=== PATIENT | female | born 1965 | race Caucasian/White ===

== ENCOUNTER 2017-03-06 05:18 | Inpatient (IN) | payer BC ==
[2017-02-04 10:41] VITALS: Ht 154.9 cm; Wt 99.0 kg
--- NOTE | 2017-02-04 11:17 | PAT Medication Instructions ---
Service Date Feb 04, 2017. Current Home Medication List Acetaminophen (Tylenol), 1-2 TAB PO Q8 PRN for Pain Meloxicam (Mobic), 15 MG PO QAM Medication Instructions For Your Scheduled Surgery - Check with surgeon for instructions: Meloxicam (Mobic), 15 MG PO QAM - Take the following medications the morning of surgery with a sip of water: Acetaminophen (Tylenol), 1-2 TAB PO Q8 PRN for Pain (okay to take up to 4 hours prior to surgery if needed) - Take the following medications as scheduled the night before surgery: Acetaminophen (Tylenol), 1-2 TAB PO Q8 PRN for Pain (if needed) If you have any questions please call us at [phone] or [phone] or [phone]
--- NOTE | 2017-02-04 11:59 | DIAGNOSTIC IMAGING REPORT ---
CHEST 2 VIEWS ROUTINE CLINICAL HISTORY: PAT preoperative evaluation COMPARISON STUDY: No previous studies for comparison. FINDINGS: The bones soft tissues and hemidiaphragms are normal. The cardiomediastinal silhouette is normal. The lungs are clear. The pulmonary vasculature is normal. IMPRESSION: Negative chest. The above report was generated using voice recognition software. It may contain grammatical, syntax or spelling errors. Electronically signed by: Meño Harris M.D. 02/04/2017 11:58 AM Dictated Date/Time: 02/04/2017 11:58 AM
[2017-02-04 12:10] LABS: BASO % 0.2 %; BASO ABS # 0.02 K/uL (0-0.2); COMPLETE YES; EOS % 1.5 %; HEMATOCRIT 43.4 % (37-47); IG% 0.2 %; LYMPH % 13.3 %; LYMPH ABS # 1.37 K/uL (1.2-3.4); MEAN CELL VOLUME 85.6 fL (80-100); MEAN CORPUSCULAR HGB CONC 33.9 g/dl (32-36); MEAN PLATELET VOLUME 9.9 fL (7.4-10.4); NEUT % 75.8 %; PLATELET COUNT 319 K/uL (130-400); RED BLOOD COUNT 5.07 M/uL (4.2-5.4); WHITE BLOOD COUNT 10.33 K/uL (4.8-10.8)
[2017-02-04 12:13] LABS: URINE APPEARANCE CLEAR (CLEAR); URINE BILIRUBIN NEG (NEG); URINE COLOR YELLOW; URINE NITRITE NEG (NEG); URINE SPECIFIC GRAVITY 1.016 (1.000-1.030); UROBILINOGEN NEG (NEG)
[2017-02-04 12:16] LABS: MANUAL MICROSCOPIC REQUIRED? NO; REVIEW REQ? NO
[2017-02-04 12:21] LABS: PARTIAL THROMBOPLASTIN RATIO 1.1; PROTHROMBIN TIME (PATIENT) 10.4 SECONDS (9.0-12.0)
[2017-02-04 12:38] LABS: ESTIMATED AVERAGE GLUCOSE 108 mg/dl; HA1C FLAG Normal (Normal)
[2017-02-04 13:06] LABS: BUN/CREATININE RATIO 18.2 (10-20); CALCIUM 9.5 mg/dl (8.5-10.1); CREATININE 0.76 mg/dl (0.60-1.20); POTASSIUM 4.3 mmol/L (3.5-5.1)
--- NOTE | 2017-03-02 18:55 | History and Physical ---
History & Physical Date Mar 02, 2017. Chief Complaint Right knee pain History of Present Illness The patient is a 51 year old female with complaints of right knee pain for several years. She has tried conservative therapy with no relief. She would like to proceed with a Right TKA Past Medical/Surgical History PMHx: One Kidney, osteoarthritis PSHx: wisdom teeth, tubal ligation Additional History Hepatic Disease: No Endocrine Disorder: No Kidney Disease: No Hypertension: No Heart Disease: No Bleeding Tendencies: No Infectious Diseases: No Allergies Coded Allergies: Sulfa Antibiotics (Verified Allergy, Unknown, LYMPH NODES HARDEN AND SWELL , 02/04/17) Home Medications Scheduled Meloxicam (Mobic), 15 MG PO QAM Scheduled PRN Acetaminophen (Tylenol), 1-2 TAB PO Q8 PRN for Pain Physical Examination Skin: warm/dry, no rash Eyes: normal inspection, EOMI ENT: normal ENT inspection Head: normocephalic, atraumatic Neck: supple, no adenopathy Respiratory/Chest: lungs clear, normal breath sounds Cardiovascular: regular rate, rhythm, no murmur Abdomen / GI: normal bowel sounds, non tender Extremities: normal inspection, + pertinent finding (decreased ROM and strength of the right knee. ligaments are intact. Medial joint line narrowing and pain. ) Neurologic/Psych: no motor/sensory deficits, alert, oriented x 3 Diagnosis Right knee osteoarthritis Plan of Treatment Patient is scheduled for a Right total knee arthroplasty. She has tried cortisone injection, PT, and NSAIDs with no relief and would like to proceed with a right total knee arthroplasty. Risks and benefits to surgery were discussed that included but no limited to increased pain, infection, DVT, need for revision surgeries, failure to relieve all symptoms, damage to blood vessels , damage to nerves, PE, and anesthesia risks were all discussed. The patient understands these risks and wishes to proceed. All questions were answered to their satisfaction. Aspirin 81mg BID will be use for DVT prophylaxis and she would like to go home with home health.
[~2017-03-06] VITALS: Ht 154.9 cm; Wt 99.0 kg
[2017-03-06] VITALS (11 sets, daily range): BP systolic 117–146; BP diastolic 50–84; PULSE 70–129; TEMP 36.4–36.9; O2SAT 94–99
[~2017-03-06 05:18] MED LIST: ACET-1256 PO; MELO7.5T5 PO
[2017-03-06] MEDS ORDERED: LACTATED RINGER'S 1000ML 500 ML IV ONE (06:00)
[2017-03-06] MEDS ORDERED: FAMOTIDINE 20 MG TAB PO SCH (06:00)
[2017-03-06] MEDS ORDERED: OXYCODONE HCL 10 MG TABCR (OXYCONTIN) PO SCH (06:00)
[2017-03-06] MEDS ORDERED: ROPIVACAINE 5MG/ML 30 ML 150 MG, BUPIVACAINE 0.5% MPF INJ 30 ML, EpINEphrine HCL INJ 0.... INFIL SCH ×8 (06:00)
[2017-03-06] MEDS ORDERED: GABAPENTIN 300 MG CAP PO SCH (06:00)
[2017-03-06] MEDS ORDERED: LACTATED RINGER'S 1000ML IV SCH (06:00)
[2017-03-06] MEDS ORDERED: DEXAMETHASONE 4 MG TAB PO SCH (06:00)
[2017-03-06] MEDS ORDERED: METOCLOPRAMIDE HCL 10 MG TAB PO SCH (06:00)
[2017-03-06] MEDS ORDERED: LACTATED RINGER'S 1000ML 1,000 ML IV SCH (06:00)
[2017-03-06] MEDS ORDERED: ACETAMINOPHEN 500 MG TAB PO SCH (06:00)
[2017-03-06] MEDS ORDERED: CEFAZOLIN 2000MG IV PUSH 10 ML IV SCH ×2 (06:00)
[2017-03-06] MEDS ORDERED: BUPIVACAINE 0.5 % 5 MG/1 ML PF 10ML VIAL ONE (06:24)
[2017-03-06] MEDS ORDERED: BACITRACIN 50000 UNIT VIAL ONE (06:27)
[2017-03-06] MEDS ORDERED: ORTHO JOINT ANESTHETIC ONE (06:27)
[2017-03-06] MEDS ORDERED: POVIDONE-IODINE OP SOLN 30 ML BTL ONE (06:27)
[2017-03-06] MEDS: TRANEXAMIC ACID INJ 1,000 MG in SYRINGE 0 ML IV SCH ×2 (06:30→06:46)
[2017-03-06] MEDS ORDERED: FENTANYL CITRATE INJ 50 MCG/1 ML 2 ML VIAL ONE (06:45)
[2017-03-06] MEDS ORDERED: MIDAZOLAM HCL 1 MG/ML 2ML VIAL ONE ×2 (06:46→07:08)
--- NOTE | 2017-03-06 06:47 | History & Physical Bridge Note ---
H&P Re-Evaluation Bridge Note: I have examined the patient, reviewed the History & Physical and in the interval since the performance of the History & Physical I have noted the following changes of clinical significance: No changes noted
[2017-03-06] MEDS ORDERED: ATROPINE SULFATE 0.1 MG/ML 5ML SYR IV PRN (07:30)
[2017-03-06] MEDS ORDERED: FENTANYL CITRATE INJ 50 MCG/1 ML 2 ML VIAL IV PRN (07:30)
[2017-03-06] MEDS ORDERED: ONDANSETRON INJ 2 MG/ML 2 ML VIAL IV PRN ×2 (07:30→09:15)
[2017-03-06] MEDS ORDERED: EpHEDrine SULFATE INJ 50 MG/ML AMP IV PRN (07:30)
[2017-03-06] MEDS ORDERED: LIDOCAINE HCL 2% 2 ML VIAL (20MG/ML) ONE (08:17)
[2017-03-06] MEDS ORDERED: PROPOFOL IV EMULSION 10 MG/ML 20 ML VIAL IV ONE (08:17)
--- NOTE | 2017-03-06 08:37 | [facility] Operative Report ---
Operative Report Operative Date Mar 06, 2017. Pre-Operative Diagnosis Right knee DEGENERATIVE JOINT DISEASE Post-Operative Diagnosis SAME PREOP Procedure(s) Performed RIGHT TOTAL KNEE ARTHROPLASTY Surgeon DR. GIRON Skilled Labor Surgeon(s) Huan AGUILAR PAC Estimated Blood Loss 20ml Findings As above plus significant synovitis Specimens RIGHT KNEE BONE AND TISSUE Drains 2 Hemovac Anesthesia spinal abductor canal block Complication(s) None Disposition Recovery Room / PACU Indications 51-year-old female long-standing degeneration the right knee. She's failed conservative measures including injection and rehabilitation. She is unable to take nonsteroidal anti-inflammatories secondary to only having 1 kidney. She wishes to proceed with right total knee arthroplasty. Description of Procedure Risks benefits and alternatives of surgery including but not limited to infection, DVT, pain, stiffness, need for surgery, damage to blood vessels, damage to nerves or risks of anesthesia were discussed with the patient and they wished to proceed. The patient was identified and the laterality was confirmed and marked. They received a preoperative antibiotic as well as a spinal anesthetic and an abductor canal block. A well-padded tourniquet was applied and then the limb was prepped and draped in standard manner with ChloraPrep. [The limb was exsanguinated and the tourniquet was inflated.] I made a standard anterior incision. I sharply incised the skin then utilized Bovie electrocautery as well as the aqua mantis to achieve hemostasis. I made a medial parapatellar arthrotomy and mobilized the patella laterally. I then excised the anterior horns of the medial and lateral meniscus as well as the infrapatellar fat pad. I elevated a portion of the MCL off of the tibia. I then pinned into place a patient-matched distal femoral cutting guide and made my distal femoral resection. I then pinned into place the 5 in 1 femoral cutting guide. I made my anterior, posterior and chamfer cuts. I then excised the cruciates and the remaining portions of the menisci. I then pinned into place a patient- matched tibial cutting guide and made my tibial resection. I then pinned into place the tibial plate a utilizing alignment swapnil to confirm rotation. I then cut for the post. Utilizing a lamina die casting machine maintainer and I then removed posterior osteophytes off the femur. I then placed a trial femur into position and cut for the trochlear component. I then sequentially trialed to size the polyethylene until there was good soft tissue balancing and range of motion. I then prepared the patella with a freehand cut utilizing sagittal saw. I sized and drilled for the patella. [There was good tracking to the patella no lateral release was needed.] All the trial components were removed. The deep tissues were anesthetized with an ortho mix solution. Then with Simplex HV with gentamicin cement, I cemented my definitive components. Definitive components, [facility]: Femur 3 Tibia 2 Poly 11 Patella 29 round A betadine soak was performed. [A deep drain was placed.] The arthrotomy was closed with interrupted #1 Vicryl suture subcutaneous tissue was closed with interrupted 2-0 Vicryl suture. The skin was closed with with [tyesha]. [A Prevena wound VAC was placed.] Sterile dressings were applied. All needle and sponge counts were correct at the end of the procedure patient was transferred to the PACU in stable condition without apparent complication. The PA-C was necessary for assistance with procedure for assistance in positioning, prepping, draping, retraction and closure. I attest to the content of the Intraoperative Record and any orders documented therein. Any exceptions are noted below.
[2017-03-06] MEDS ORDERED: ZOLPIDEM TARTRATE 5 MG TAB PO PRN (09:15)
[2017-03-06] MEDS ORDERED: BISACODYL 10 MG SUPP PR PRN (09:15)
[2017-03-06] MEDS ORDERED: SOD PHOSPHATE/SOD BIPHOSPHATE ENEMA 132 ML BTL PR PRN (09:15)
[2017-03-06] MEDS ORDERED: MAGNESIUM HYDROXIDE SUSP 30 ML UDC PO PRN (09:15)
[2017-03-06] MEDS ORDERED: NO NSAIDS PR SCH (09:15)
[2017-03-06] MEDS ORDERED: MoRPHine SULFATE 2 MG/ML CARP IV PRN (09:15)
[2017-03-06] MEDS ORDERED: ALUMINUM/MAGNESIUM/SIMETH (MAALOX MAX) 30 ML UDC PO PRN (09:15)
--- NOTE | 2017-03-06 09:54 | Anesthesiology Progress Note ---
Anesthesia Post Op Note Date & Time Mar 06, 2017 at 09:54 Vital Signs Pain Intensity: 0 Vital Signs Past 12 Hours Date Time Temp Pulse Resp B/P (MAP) Pulse Ox O2 Delivery O2 Flow Rate FiO2 03/06/17 09:50 79 16 122/79 98 Nasal Cannula 2 03/06/17 09:40 73 16 133/79 98 Nasal Cannula 2 03/06/17 09:30 72 16 121/77 95 Nasal Cannula 2 03/06/17 09:20 84 16 126/71 95 Nasal Cannula 2 03/06/17 09:12 36.5 96 16 125/78 95 Nasal Cannula 2 03/06/17 06:29 36.7 76 18 128/83 Room Air Notes Mental Status: alert / awake / arousable, participated in evaluation Pt Amnestic to Procedure: Yes Nausea / Vomiting: adequately controlled Pain: adequately controlled Airway Patency, RR, SpO2: stable & adequate BP & HR: stable & adequate Hydration State: stable & adequate Anesthetic Complications: no major complications apparent
--- NOTE | 2017-03-06 09:58 | DIAGNOSTIC IMAGING REPORT ---
R KNEE 1 OR 2 VIEWS ROUTINE HISTORY: 51 years-old Female AP/LATERAL IN PACU RIGHT KNEE status post right knee total joint arthroplasty. Right knee osteoarthritis COMPARISON: None available TECHNIQUE: 2 views of the right knee FINDINGS: Postoperative changes compatible with recent right knee total joint arthroplasty and patella resurfacing. Alignment is satisfactory. No periprosthetic fracture or retained foreign body identified. Anterior skin tyesha are noted along with a surgical drain. Expected postsurgical soft tissue swelling and deep tissue air. IMPRESSION: Status post right knee total joint arthroplasty and patellar resurfacing without complication identified. The above report was generated using voice recognition software. It may contain grammatical, syntax or spelling errors. Electronically signed by: Jamie Jesus M.D. 03/06/2017 9:57 AM Dictated Date/Time: 03/06/2017 9:56 AM
[2017-03-06] MEDS ORDERED: DiphenhydrAMINE HCL 50 MG/ML VIAL ONE ×3 (12:02→12:33)
[2017-03-06] MEDS ORDERED: NURSING VERBAL MED ORDER ONE ×5 (12:15→14:30)
[2017-03-06] MEDS ORDERED: LORAZEPAM INJ 0.5 MG in SYRINGE 0.75 ML IV SCH (12:15)
[2017-03-06] MEDS: FERROUS GLUCONATE 324 MG TAB PO SCH ×2 (12:20→16:25)
[2017-03-06 13:01] LABS: ALKALINE PHOSPHATASE 87 U/L (45-117); ALT/SGPT 24 U/L (12-78); AST/SGOT 13 U/L (15-37)
[2017-03-06] MEDS ORDERED: BENZTROPINE MESYLATE 1 MG/ML 2 ML AMP IV STA (13:03)
[2017-03-06] MEDS ORDERED: BENZTROPINE IV ONE (13:15)
--- NOTE | 2017-03-06 14:28 | Anesthesiology Progress Note ---
Anesthesia Progress Note Date of Service Mar 06, 2017. Progress Notes Pt is a 51F s/p R TKA performed under spinal anesthesia with R adductor canal block. I was called by nursing 2/2 pt having "tremors." I personally went to evaluate the pt. The pt was noted to have uncontrolled lower extremity and truncal movement. The pt was cognitively intact but was unable to control her movements. The pt's vital signs were stable. The pt's LE strength was 4/5 likely 2/2 resolving spinal anesthesia and her UE strength was 5/5. Sensation was intact in the upper and lower extremities. The pt was given 25mg of benadryl p.o.,100mg of benadryl IV, and 0.5mg of ativan IV. There was no improvement in the symptoms. I spoke with Dr. Hernandez and Dr. Lock of neurology. Their impression was the pt was showing side effects of the oral reglan the pt received pre-operatively. They recommended that the pt receive 1mg cogentin IV. I had the pt transferred to telemetry for closer observation. Upon re-evaluation , the pt continued to have uncontrolled movements but it was much improved. The pt remained cognitively intact, and her vital signs were stable. I spoke with Dr. Whiteside about the pt's status, and I consulted him for further care. I updated Dr. Da Silva on the pt's status.
[2017-03-06] MEDS: CLINDAMYCIN IV 600 MG in DEXTROSE 5% 50ML 50 ML IV SCH ×2 (14:33→23:15)
[2017-03-06] MEDS: SODIUM CHLORIDE 0.9% 1000ML 1,000 ML IV SCH ×2 (15:09→22:47)
[2017-03-06] MEDS ORDERED: LORAZEPAM 2 MG/ML 1 ML VIAL IV PRN (19:00)
--- NOTE | 2017-03-06 19:02 | Medical Consult ---
Consultation Date of Consultation: Mar 06, 2017. Attending Physician: Michael Da Silva M.D. Reason for Consultation: Akathisia / involuntary movement History of Present Illness 51 years old female with no significant past medical history presented to the hospital for elective right total knee arthroplasty. Patient has chronic arthritis and failed outpatient conservative management. Prior to the procedure patient received oral Reglan as a standard procedure to prevent aspiration. Procedure was done under spinal anesthesia and minor sedation with propofol and fentanyl and Versed procedure went uneventful but as soon as the patient woke up she started having significant involuntary movement in both upper and lower extremities and in her waist. She did not have any shortness of breath or difficulty swallowing or any abnormal movement in her tongue and palate. No hoarseness of voice or wheezing. We were consulted to co manage her symptoms Social History Smoking Status: Never Smoker Allergies Coded Allergies: Sulfa Antibiotics (Verified Allergy, Unknown, LYMPH NODES HARDEN AND SWELL , 03/06/17) Current Inpatient Medications Current Inpatient Medications Medications (Trade) Dose Ordered Sig/Vane Route Start Time Stop Time Status Last Admin Dose Admin Clindamycin Phosphate 600 mg/ Dextrose 54 ml @ 100 mls/hr Q8H IV 03/06/17 15:00 03/06/17 23:33 03/06/17 14:33 100 MLS/HR Miscellaneous Medication (No Nsaids) 1 ea UD DC 03/06/17 09:15 04/05/17 09:14 Oxycodone HCl (Roxicodone Immediate Rel Tab) 1 TABLET FOR PAIN RATING... Q4H PRN PO 03/06/17 09:15 03/20/17 09:14 Morphine Sulfate (MoRPHine SULFATE INJ) 2 mg Q2H PRN IV 03/06/17 09:15 03/20/17 09:14 Magnesium Hydroxide (Milk Of Magnesia Susp) 30 ml Q6H PRN PO 03/06/17 09:15 04/05/17 09:14 Bisacodyl (Dulcolax Supp) 10 mg DAILY PRN DC 03/06/17 09:15 04/05/17 09:14 Sodium Biphosphate/ Sodium Phosphate (Fleet Enema) 132 ml DAILY PRN DC 03/06/17 09:15 04/05/17 09:14 Senna (Senokot Tab) 17.2 mg HS PO 03/06/17 21:00 04/05/17 20:59 Docusate Sodium (coLACE CAP) 100 mg BID PO 03/06/17 21:00 04/05/17 20:59 Diphenhydramine HCl (Benadryl Cap) 25 mg Q8H PRN PO 03/06/17 09:15 04/05/17 09:14 03/06/17 11:08 25 MG Al Hydrox/Mg Hydrox/Simethicone (Maalox Max Susp) 15 ml Q4H PRN PO 03/06/17 09:15 04/05/17 09:14 Zolpidem Tartrate (Ambien Tab) 5 mg HSZ PRN PO 03/06/17 09:15 04/05/17 09:14 Multivitamins (Multivitamin Tab) 1 tab QAM PO 03/07/17 09:00 04/06/17 08:59 Ondansetron HCl (Zofran Inj) 4 mg Q6H PRN IV 03/06/17 09:15 04/05/17 09:14 Ferrous Gluconate (Ferrous Gluconate Tab) 324 mg TIDM PO 03/06/17 12:00 04/05/17 11:59 03/06/17 16:25 324 MG Rivaroxaban (Xarelto Tab) 10 mg DAILY PO 03/07/17 09:00 04/06/17 08:59 Sodium Chloride 1,000 ml @ 125 mls/hr Q8H IV 03/06/17 14:45 04/05/17 14:44 03/06/17 15:09 125 MLS/HR Review of Systems Constitutional: No fever, No chills, No sweats, No weight loss, No weakness, No fatigue, No problem reported Eyes: No worsening of vision, No eye pain, No redness, No discharge, No diplopia, No problem reported ENT: No hearing loss, No unusual epistaxis, No nasal symptoms, No sore throat, No tinnitus, No dental problems, No trouble swallowing, No problem reported Respiratory: No cough, No sputum, No wheezing, No shortness of breath, No dyspnea on exertion, No dyspnea at rest, No hemoptysis, No problem reported Cardiovascular: No chest pain, No orthopnea, No PND, No edema, No claudication , No palpitations, No problem reported Abdomen: No pain, No nausea, No vomiting, No diarrhea, No constipation, No GI bleeding, No problem reported Musculoskeletal: No joint pain, No muscle pain, No swelling, No calf pain, No problem reported Genitourinary - Female: No dysuria, No urinary frequency, No urinary urgency, No urinary incontinence, No urinary retention, No hematuria, No dysmenorrhea, No menorrhagia, No metrorrhagia, No rash, No vaginal bleeding, No vaginal discharge, No vaginal itching, No vulvodynia, No , No problem reported Neurologic: + problem reported (as mentioned in history of present illness), No memory loss, No paralysis, No weakness, No numbness/tingling, No vertigo, No balance problems Psychiatric: No depression symptoms, No anhedonism, No anxiety, No insomnia, No substance abuse, No problem reported Endocrine: No fatigue, No excessive thirst, No excessive urination, No problem reported Hematologic / Lymphatic: No abnormal bleeding/bruising, No clotting problems, No swollen lymph nodes, No night sweats, No problem reported Integumentary: No rash, No itch, No new/changing skin lesions, No color change , No bleeding, No problem reported Physical Exam Date Time Temp Pulse Resp B/P (MAP) Pulse Ox O2 Delivery O2 Flow Rate FiO2 03/06/17 16:19 36.9 94 18 118/84 (95) 97 03/06/17 16:00 Room Air 03/06/17 14:00 36.5 111 19 146/51 (82) 94 Nasal Cannula 2.0 03/06/17 13:32 36.4 129 21 99 2.0 03/06/17 13:04 129 21 134/50 (78) 99 Nasal Cannula 2.0 03/06/17 12:12 36.4 98 19 145/78 (100) 98 Nasal Cannula 2.0 03/06/17 11:21 90 18 144/79 (100) 98 2.0 03/06/17 10:48 73 18 130/81 (97) 96 Nasal Cannula 2.0 03/06/17 10:34 98 Nasal Cannula 2.0 03/06/17 10:15 98 Room Air 2.0 03/06/17 10:15 36.6 71 18 122/61 (81) 98 Room Air 2.0 03/06/17 10:00 36.9 74 16 124/68 98 Nasal Cannula 2 03/06/17 09:50 79 16 122/79 98 Nasal Cannula 2 03/06/17 09:40 73 16 133/79 98 Nasal Cannula 2 03/06/17 09:30 72 16 121/77 95 Nasal Cannula 2 03/06/17 09:20 84 16 126/71 95 Nasal Cannula 2 03/06/17 09:12 36.5 96 16 125/78 95 Nasal Cannula 2 03/06/17 06:29 36.7 76 18 128/83 Room Air General Appearance: WD/WN, no apparent distress Head: normocephalic, atraumatic Eyes: normal inspection, EOMI ENT: normal ENT inspection, hearing grossly normal, TMs normal Neck: supple, no adenopathy, thyroid normal Respiratory/Chest: chest non-tender, lungs clear, normal breath sounds, no respiratory distress, no accessory muscle use Cardiovascular: regular rate, rhythm, no edema, no gallop, no JVD, no murmur, normal peripheral pulses Abdomen/GI: non tender, soft, no organomegaly, no pulsatile mass, normal rectal exam, occult blood negative Back: normal inspection Extremities/Musculoskelatal: normal inspection, no calf tenderness, normal capillary refill Neurologic/Psych: patent litigation associate II-XII nml as tested, alert, normal mood/affect, oriented x 3, + pertinent finding (patient has involuntarily jerking movement in all of her extremity and waist) Skin: normal color, warm/dry, no rash Laboratory Results Last 24 Hours Test 03/06/17 12:27 Total Bilirubin 0.3 mg/dl Direct Bilirubin < 0.1 mg/dl Aspartate Amino Transf (AST/SGOT) 13 U/L Alanine Aminotransferase (ALT/SGPT) 24 U/L Alkaline Phosphatase 87 U/L Total Protein 6.8 gm/dl Albumin 3.0 gm/dl Assessment & Plan 51 years old female with no significant past medical history, status post right total knee arthroplasty, developed acute involuntarily movement Assessment Involuntary extrapyramidal tract movement/akathisia/dystonia likely reaction to Reglan Arthritis status post successful right total knee replacement Plan Patient received Benadryl IV/Ativan IV/1 mg of Cogentin IV Case was discussed between anesthesiologist and neurologist 20 minutes after I did my initial exam to the patient, all her symptoms resolved , she does not have any more involuntary movement. Rule out rhabdomyolysis secondary to the vigorous muscle shaking, will order CPK now and in a.m. Also ordered renal function and liver function a.m. Keep her on IV fluids DVT prophylaxis as per primary orthopedic team
[2017-03-06] MEDS ORDERED: LORAZEPAM INJ 1 MG in SYRINGE 0.5 ML IV PRN (19:15)
[2017-03-06] MEDS: SENNA 8.6 MG TAB PO SCH (21:00)
[2017-03-06] MEDS: DOCUSATE SODIUM 100 MG CAP PO SCH (21:00)
[2017-03-07 03:50] VITALS: BP 117/71; PULSE 72; TEMP 36.7; O2SAT 96
[2017-03-07] MEDS: OXYCODONE HCL IR 5 MG TAB (IMMEDIATE RELEASE) PO PRN ×4 (04:03→23:16)
[2017-03-07] MEDS: SODIUM CHLORIDE 0.9% 1000ML 1,000 ML IV SCH ×3 (06:45→19:40)
[2017-03-07 07:37] LABS: BASO % 0.1 %; BASO ABS # 0.01 K/uL (0-0.2); COMPLETE YES; HEMATOCRIT 33.7 % (37-47); IG% 0.3 %; LYMPH % 7.9 %; LYMPH ABS # 1.25 K/uL (1.2-3.4); MEAN CELL VOLUME 85.3 fL (80-100); MEAN CORPUSCULAR HEMOGLOBIN 28.4 pg (25-34); MEAN CORPUSCULAR HGB CONC 33.2 g/dl (32-36); MEAN PLATELET VOLUME 10.2 fL (7.4-10.4); MONO % 6.6 %; NEUT % 85.1 %; PLATELET COUNT 291 K/uL (130-400); RED BLOOD COUNT 3.95 M/uL (4.2-5.4); WHITE BLOOD COUNT 15.81 K/uL (4.8-10.8)
[2017-03-07 07:45] LABS: PROTHROMBIN TIME (PATIENT) 10.6 SECONDS (9.0-12.0)
[2017-03-07] MEDS: FERROUS GLUCONATE 324 MG TAB PO SCH ×3 (07:47→16:21)
[2017-03-07] MEDS: RIVAROXABAN 10 MG TAB PO SCH (07:47)
[2017-03-07] MEDS: MULTIVITAMIN TAB PO SCH (07:47)
[2017-03-07] MEDS: DOCUSATE SODIUM 100 MG CAP PO SCH ×2 (07:48→19:38)
[2017-03-07 07:58] VITALS: BP 123/82; PULSE 73; TEMP 36.8; O2SAT 96
[2017-03-07 08:22] LABS: BUN/CREATININE RATIO 21.8 (10-20); CALCIUM 8.3 mg/dl (8.5-10.1); CREATININE 0.7 mg/dl (0.60-1.20); POTASSIUM 3.8 mmol/L (3.5-5.1)
[2017-03-07 08:25] LABS: ALB/GLOB RATIO 0.8 (0.9-2)
--- NOTE | 2017-03-07 08:43 | Orthopedic Progress Note ---
Orthopedic Progress Note Date of Service Mar 07, 2017. Subjective Post OP Day: 1 Reports: feeling well, pain controlled w PO medications, Denies: complaints, chest pain, SOB, nausea / vomiting, light headedness, calf pain Additional Notes: Patient seen at bedside, comfortable, no acute issues overnight. Pain well controlled. Objective NAD, AOX3 RLE NVSI +EHL/FHL/TA/GS SILT grossly, CR< 2 seconds, compartments soft NT, dressing cdi, drain in place Date Time Temp Pulse Resp B/P (MAP) Pulse Ox O2 Delivery O2 Flow Rate FiO2 03/07/17 07:58 36.8 73 20 123/82 (96) 96 Room Air 03/07/17 04:00 Room Air 03/07/17 03:50 36.7 72 18 117/71 (86) 96 Room Air 03/07/17 00:00 Room Air 03/06/17 23:45 36.6 70 18 117/74 (88) 94 Room Air 03/06/17 20:00 Room Air 03/06/17 19:11 36.5 86 20 124/69 (87) 95 03/06/17 16:19 36.9 94 18 118/84 (95) 97 03/06/17 16:00 Room Air 03/06/17 14:00 36.5 111 19 146/51 (82) 94 Nasal Cannula 2.0 03/06/17 13:32 36.4 129 21 99 2.0 03/06/17 13:04 129 21 134/50 (78) 99 Nasal Cannula 2.0 03/06/17 12:12 36.4 98 19 145/78 (100) 98 Nasal Cannula 2.0 03/06/17 11:21 90 18 144/79 (100) 98 2.0 03/06/17 10:48 73 18 130/81 (97) 96 Nasal Cannula 2.0 03/06/17 10:34 98 Nasal Cannula 2.0 03/06/17 10:15 98 Room Air 2.0 03/06/17 10:15 36.6 71 18 122/61 (81) 98 Room Air 2.0 03/06/17 10:00 36.9 74 16 124/68 98 Nasal Cannula 2 03/06/17 09:50 79 16 122/79 98 Nasal Cannula 2 03/06/17 09:40 73 16 133/79 98 Nasal Cannula 2 03/06/17 09:30 72 16 121/77 95 Nasal Cannula 2 03/06/17 09:20 84 16 126/71 95 Nasal Cannula 2 03/06/17 09:12 36.5 96 16 125/78 95 Nasal Cannula 2 Laboratory Results 24 Hours: Test 03/07/17 07:02 White Blood Count 15.81 K/uL Red Blood Count 3.95 M/uL Hemoglobin 11.2 g/dL Hematocrit 33.7 % Mean Corpuscular Volume 85.3 fL Mean Corpuscular Hemoglobin 28.4 pg Mean Corpuscular Hemoglobin Concent 33.2 g/dl Platelet Count 291 K/uL Mean Platelet Volume 10.2 fL Neutrophils (%) (Auto) 85.1 % Lymphocytes (%) (Auto) 7.9 % Monocytes (%) (Auto) 6.6 % Eosinophils (%) (Auto) 0.0 % Basophils (%) (Auto) 0.1 % Neutrophils # (Auto) 13.46 K/uL Lymphocytes # (Auto) 1.25 K/uL Monocytes # (Auto) 1.04 K/uL Eosinophils # (Auto) 0.00 K/uL Basophils # (Auto) 0.01 K/uL Prothromb Time International Ratio 1.0 Prothrombin Time 10.6 SECONDS Assessment & Plan Assessment: POD#1 s/p R TKA Plan: -Clinda x 24hr -Xarelto for DVT ppx -AM labs -WBAT RLE -PT/OT -DC Drain today -Maintain Prevena incision vac -DC planing -poss DC home today vs tomorrow if medically cleared
--- NOTE | 2017-03-07 09:17 | Hospitalist Progress Note ---
Hospitalist Progress Note Date of Service Mar 07, 2017. (Margaret BarbozaBrenna, SHAQ) I personally interviewed and examined the patient. I agree with history of present illness and physical exam mentioned above, I also performed my own history taking and examination. Past medical history and review of system has been obtained by myself I reviewed all pertinent labs and studies Reviewed current medications I discussed and formulated of the assessment and plan mentioned above. Please refer to the Summary mentioned below. Agree With Mrs. Barboza plan General Appearance: not in acute distress Eyes: normal Sclerae, extraocular muscle intact ENT: hearing grossly normal Neck: supple Respiratory/Chest: normal air entry especially bilateral ,no respiratory distress, no accessory muscle use Cardiovascular: regular rate, rhythm, no murmur Abdomen: non tender, soft, no masses Extremities: no edema Neurologic/Psychiatric: Awake alert oriented times place and person moves all extremities sensation intact cranial nerves II-12 appear to be intact Skin: normal color, warm/dry, no rash 51 years old female with no significant past medical history, status post right total knee arthroplasty, developed acute involuntarily movement. currently resolved Assessment Involuntary extrapyramidal tract movement/akathisia/dystonia likely reaction to Reglan Arthritis status post successful right total knee replacement Plan Patient yesterday received Benadryl IV/Ativan IV/1 mg of Cogentin IV Currently all extrapyramidal movement resolved Patient medically stable and cleared for discharge CPK within normal limits/ white blood cell count likely reactive DVT prophylaxis as per primary orthopedic team From our aspect there is no contraindication to discharge patient home. Please call us if you have any questions Evens Whitseide MD, [facility] hospitalist group (Evens Sims MD) Subjective Pt evaluation today including: conversation w/ patient, physical exam, chart review, lab review, review of studies Pain: Mild R knee pain PO Intake: Good Voiding: no voiding problems The patient was seen and examined this morning. Pt reports doing ok. She was seen working with PT and seemed to do well. Still having some paresthesias in her right foot, but feels this is due a cramping sensation she feels in the right thigh. She reports not remembering ~3 hour period yesterday when she was having the issue with shaking, but has not experienced anything like this since that time. No soreness or muscle cramping otherwise. Pt denies any other acute complaints. Pt tolerated breakfast without difficulty and had a BM this morning. Social Hx: Pt reports having an gordy family, but considers herself a "fence jumper" since she transitioned to Pashto. 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 Since then trailed PT/OT, got a hot tub for relief, and also did corticosteroid injections. Pt notes she butchered the cow that kicked her. ROS: 6 point ROS reviewed and otherwise negative. (Margaret Barboza, SHAQ) I did not see this patient at any point in hospitalization. Dr. Whiteside saw the patient in conjunction with EARLE Barboza and cosigned as above. I was listed as the cosigner and am signing this note in order to complete it in the EMR only. (Sania Baez MD) Objective Vital Signs Date Time Temp Pulse Resp B/P (MAP) Pulse Ox O2 Delivery O2 Flow Rate FiO2 03/07/17 07:58 36.8 73 20 123/82 (96) 96 Room Air 03/07/17 04:00 Room Air 03/07/17 03:50 36.7 72 18 117/71 (86) 96 Room Air 03/07/17 00:00 Room Air 03/06/17 23:45 36.6 70 18 117/74 (88) 94 Room Air 03/06/17 20:00 Room Air 03/06/17 19:11 36.5 86 20 124/69 (87) 95 03/06/17 16:19 36.9 94 18 118/84 (95) 97 03/06/17 16:00 Room Air 03/06/17 14:00 36.5 111 19 146/51 (82) 94 Nasal Cannula 2.0 03/06/17 13:32 36.4 129 21 99 2.0 03/06/17 13:04 129 21 134/50 (78) 99 Nasal Cannula 2.0 03/06/17 12:12 36.4 98 19 145/78 (100) 98 Nasal Cannula 2.0 03/06/17 11:21 90 18 144/79 (100) 98 2.0 03/06/17 10:48 73 18 130/81 (97) 96 Nasal Cannula 2.0 03/06/17 10:34 98 Nasal Cannula 2.0 03/06/17 10:15 98 Room Air 2.0 03/06/17 10:15 36.6 71 18 122/61 (81) 98 Room Air 2.0 03/06/17 10:00 36.9 74 16 124/68 98 Nasal Cannula 2 03/06/17 09:50 79 16 122/79 98 Nasal Cannula 2 03/06/17 09:40 73 16 133/79 98 Nasal Cannula 2 03/06/17 09:30 72 16 121/77 95 Nasal Cannula 2 03/06/17 09:20 84 16 126/71 95 Nasal Cannula 2 (Margaret Barboza PA-C) Physical Exam General Appearance: WD/WN, no apparent distress, + obese Eyes: PERRL, EOMI ENT: hearing grossly normal, pharynx normal Neck: supple, no JVD Respiratory/Chest: lungs clear, no respiratory distress, no accessory muscle use Cardiovascular: regular rate, rhythm, no murmur Abdomen: normal bowel sounds, non tender, soft Extremities: non-tender, no pedal edema, no calf tenderness, + pertinent finding (R leg wrapped in TIMBO, hemovac drain in placed, + numbness and tingling into the distal foot, good active ROM with PT) Neurologic/Psychiatric: alert, normal mood/affect, oriented x 3 Skin: normal color, warm/dry (Margaret Barboza PA-C) Laboratory Results Last 24 Hours Test 03/06/17 12:27 03/06/17 19:50 03/07/17 07:02 Total Bilirubin 0.3 mg/dl 0.3 mg/dl Direct Bilirubin < 0.1 mg/dl Aspartate Amino Transf (AST/SGOT) 13 U/L 10 U/L Alanine Aminotransferase (ALT/SGPT) 24 U/L 18 U/L Alkaline Phosphatase 87 U/L 70 U/L Total Protein 6.8 gm/dl 6.2 gm/dl Albumin 3.0 gm/dl 2.8 gm/dl Total Creatine Kinase 114 U/L 79 U/L White Blood Count 15.81 K/uL Red Blood Count 3.95 M/uL Hemoglobin 11.2 g/dL Hematocrit 33.7 % Mean Corpuscular Volume 85.3 fL Mean Corpuscular Hemoglobin 28.4 pg Mean Corpuscular Hemoglobin Concent 33.2 g/dl Platelet Count 291 K/uL Mean Platelet Volume 10.2 fL Neutrophils (%) (Auto) 85.1 % Lymphocytes (%) (Auto) 7.9 % Monocytes (%) (Auto) 6.6 % Eosinophils (%) (Auto) 0.0 % Basophils (%) (Auto) 0.1 % Neutrophils # (Auto) 13.46 K/uL Lymphocytes # (Auto) 1.25 K/uL Monocytes # (Auto) 1.04 K/uL Eosinophils # (Auto) 0.00 K/uL Basophils # (Auto) 0.01 K/uL RDW Standard Deviation 44.9 fL RDW Coefficient of Variation 14.3 % Immature Granulocyte % (Auto) 0.3 % Immature Granulocyte # (Auto) 0.05 K/uL Prothrombin Time 10.6 SECONDS Prothromb Time International Ratio 1.0 Sodium Level 141 mmol/L Potassium Level 3.8 mmol/L Chloride Level 110 mmol/L Carbon Dioxide Level 24 mmol/L Anion Gap 6.0 mmol/L Blood Urea Nitrogen 15 mg/dl Creatinine 0.70 mg/dl Est Creatinine Clear Calc Drug Dose 94.6 ml/min Estimated GFR () 115.5 Estimated GFR (Non- 99.6 BUN/Creatinine Ratio 21.8 Random Glucose 126 mg/dl Calcium Level 8.3 mg/dl Globulin 3.4 gm/dl Albumin/Globulin Ratio 0.8 (Margaret Barboza, PA-C) Assessment and Plan 51 years old female with no significant past medical history, status post right total knee arthroplasty, developed acute involuntarily movement Assessment Involuntary extrapyramidal tract movement/akathisia/dystonia likely reaction to Reglan - Resolved likely with combination of benadryl IV/ativan IV/ 1 mg Cogentin IV - CPK checked and is 79 - no rhabdo - Cr is baseline = 0.70 with adequate Cr. clearance - D/c fluids if tolerating PO intake Arthritis status post successful right total knee replacement - pain management, bowel regimen and DVT ppx per primary team - hemovac drain in place - PT/OT on board CODE status: FULL Disposition: From home, likely discharge within 24 hours per primary team Thank you for involving us in the care of Ms. Martinez, at this time medicine will sign off. (Margaret Barboza, SHAQ)
[2017-03-07] MEDS ORDERED: RXC5 PO (10:22)
[2017-03-07] MEDS ORDERED: ACET-1256 PO (10:22)
[2017-03-07] MEDS ORDERED: XRL10 PO (10:22)
--- NOTE | 2017-03-07 10:31 | Discharge Instructions ---
Discharge Instructions Date of Service Mar 07, 2017. Admission Reason for Admission: Right Knee Osteoarthritis Discharge Discharge Diagnosis / Problem: Right Knee Djd Discharge Goals Goal(s): Decrease discomfort, Improve function, Increase independence Activity Recommendations Activity Limitations: per Instructions/Follow-up section Weightbearing Status: Right weightbearing (as tolerated) . Instructions / Follow-Up Instructions / Follow-Up ACTIVITY RECOMMENDATIONS: SELF CARE INSTRUCTIONS AFTER TOTAL KNEE REPLACEMENT A. You may need to continue a physical therapy program after discharge from the hospital. There are several options available to you. Your doctor will assist you in selecting the best one for you. 1. An out-patient facility 2 to 3 times a week for therapy or home therapy. 2. Continue working on all exercises taught to you in the hospital. Your goals should be to increase bending of your knee to 90 degrees and beyond and to fully straighten your knee. B. You may progress at your own pace from walking with a walker or crutches to a cane; then to no assistive devices. C. Make walking a part of your daily routine. Be up as much as comfortable with rest periods throughout the day. Rest with leg elevation is very important. Use the ice wrap frequently for the first 3-4 weeks. D. There are no restrictions on activities. You may ride in a car, shop, participate in customer support assistant and all social activities. E. Wear the long elastic stockings (ROCKY hose) 20 hours a day for 2 weeks after surgery. They can be removed several times a day for laundering and for a bath. F. You may shower, no tub baths until cleared by your doctor. SPECIAL CARE INSTRUCTIONS: VERY IMPORTANT TO READ AND REVIEW A. There are a few signs you need to watch for after you are home. Call [facility] if you notice any of the followin. Increased severe knee pain. Some pain is expected especially when you exercise. 2. Increased swelling in your leg or knee; pain or swelling of the calf muscle in either lower leg. 3. Any fluid drainage from the incision. 4. Shortness of breath or chest pain. B. Please call [facility] at if you have any concerns or questions about your operation or recovery. The doctor or his nurse will return your call promptly. C. You must take antibiotics before dental work, bladder, bowel or other surgery. Your doctor will provide you with a permanent care to carry describing this precaution. IMPORTANT: * REMEMBER TO TAKE XARELTO 10MG ONCE DAILY FOR 4 WEEKS UNLESS OTHERWISE DIRECTED. THIS IS YOUR BLOOD THINNER. * CALL IF INCREASED PAIN, REDNESS, DRAINAGE OR FEVER GREATER THAT 101. * WEAR ROCKY HOSE 20 HOURS PER DAY FOR 2 WEEKS. * Prevena- This is a large suction dressing covering your incision. This will help pull any excess drainage from the wound and allow your incision to heal properly. You may shower with this if you can keep the unit outside of the shower. If any bleeding or leakage is noted please call your doctor's office. This will remain on your incision for 7 days and then should be removed. This can be done yourself or by the home nursing staff if applicable. The entire unit is disposable once removed. Once removed, keep incision clean and dry. If redness or drainage is noted, please call your surgeon. . FOLLOW UP VISIT: If appointment is not already scheduled: Please call [facility] to make a follow-up appointment for 2 weeks after your surgery at . Current Hospital Diet Patient's current hospital diet: Regular Diet Discharge Diet Recommended Diet: Regular Diet Procedures Procedures Performed: RIGHT TOTAL KNEE ARTHROPLASTY Pending Studies Studies pending at discharge: no Laboratory Results Hemoglobin A1c Test 02/04/17 11:25 Range/Units Estimated Average Glucose 108 mg/dl Hemoglobin A1c 5.4 4.5-5.6 % Medical Emergencies . Who to Call and When: Medical Emergencies: If at any time you feel your situation is an emergency, please call 911 immediately. . Non-Emergent Contact Non-Emergency issues call your: Surgeon Call Non-Emergent contact if: temperature is above 101.5, your pain is not controlled, your pain is worsening, wound has increased drainage, wound has increased redness . "Provider Documentation" section prepared by Keny John. . VTE Core Measure Inpt VTE Proph given/why not?: Other Anticoagulation, T.E.D. Stockings, SCD's [place] Drug Monitoring Program Search Results: patient reviewed within database, no issues identified
--- NOTE | 2017-03-07 11:14 | Neurology Consultation ---
Neurology Consultation Date of Consultation: Mar 07, 2017. Attending Physician: Michael Da Silva M.D. Primary Care Physician: Derian Blackburn MD Reason for Consultation: Abnormal movements History of Present Illness Source: patient, hospital records The patient is a 51-year-old female who experienced an episode of uncontrollable , involuntary, movements of the limbs and musculature of the torso that were noted after recovery from anesthesia which was administered for a right total knee arthroplasty. The patient was given Reglan as well as light sedation with propofol, fentanyl, and Versed. A spinal block was utilized. There was no associated loss of consciousness or awareness during the episode. Nursing notes indicate that the patient was exhibiting uncontrollable shaking of her entire body. Yet, when asked to follow commands, the shaking would stop. The patient had complained that the SCDs were triggering the movements. These abnormal movements were potentially felt to be related to the use of Reglan, prior to anesthesia. She was treated with IV Benadryl without much improvement, however. She was also treated with IV lorazepam. The movements eventually resolved after administration of Cogentin. Upon further questioning, the patient indicates that she has had similar reactions to anesthesia in the past but does not really recall if she was given Reglan or not with these prior episodes. Otherwise, the patient does not have a known history of movement disorder. Currently, the patient feels fine. She does not have any significant complaints. She has not expressed a recurrence of these abnormal movements. She denies muscle pain, weakness, or sensory loss. Allergies Coded Allergies: Metoclopramide (Verified Allergy, Severe, Involuntary movement, limb shaking/jerking, 03/07/17) Sulfa Antibiotics (Verified Allergy, Unknown, LYMPH NODES HARDEN AND SWELL , 03/06/17) Current Inpatient Medications Current Inpatient Medications Medications (Trade) Dose Ordered Sig/Vane Route Start Time Stop Time Status Last Admin Dose Admin Miscellaneous Medication (No Nsaids) 1 ea UD CA 03/06/17 09:15 04/05/17 09:14 Oxycodone HCl (Roxicodone Immediate Rel Tab) 1 TABLET FOR PAIN RATING... Q4H PRN PO 03/06/17 09:15 03/20/17 09:14 03/07/17 04:03 10 MG Morphine Sulfate (MoRPHine SULFATE INJ) 2 mg Q2H PRN IV 03/06/17 09:15 03/20/17 09:14 Magnesium Hydroxide (Milk Of Magnesia Susp) 30 ml Q6H PRN PO 03/06/17 09:15 04/05/17 09:14 Bisacodyl (Dulcolax Supp) 10 mg DAILY PRN CA 03/06/17 09:15 04/05/17 09:14 Sodium Biphosphate/ Sodium Phosphate (Fleet Enema) 132 ml DAILY PRN CA 03/06/17 09:15 04/05/17 09:14 Senna (Senokot Tab) 17.2 mg HS PO 03/06/17 21:00 04/05/17 20:59 Docusate Sodium (coLACE CAP) 100 mg BID PO 03/06/17 21:00 04/05/17 20:59 Diphenhydramine HCl (Benadryl Cap) 25 mg Q8H PRN PO 03/06/17 09:15 04/05/17 09:14 03/06/17 11:08 25 MG Al Hydrox/Mg Hydrox/Simethicone (Maalox Max Susp) 15 ml Q4H PRN PO 03/06/17 09:15 04/05/17 09:14 Zolpidem Tartrate (Ambien Tab) 5 mg HSZ PRN PO 03/06/17 09:15 04/05/17 09:14 Multivitamins (Multivitamin Tab) 1 tab QAM PO 03/07/17 09:00 04/06/17 08:59 03/07/17 07:47 1 TAB Ondansetron HCl (Zofran Inj) 4 mg Q6H PRN IV 03/06/17 09:15 04/05/17 09:14 Ferrous Gluconate (Ferrous Gluconate Tab) 324 mg TIDM PO 03/06/17 12:00 04/05/17 11:59 03/07/17 07:47 324 MG Rivaroxaban (Xarelto Tab) 10 mg DAILY PO 03/07/17 09:00 04/06/17 08:59 03/07/17 07:47 10 MG Sodium Chloride 1,000 ml @ 125 mls/hr Q8H IV 03/06/17 14:45 04/05/17 14:44 03/07/17 06:45 125 MLS/HR Lorazepam (Ativan Inj) 1 mg Q4H PRN IV 03/06/17 19:00 04/05/17 18:59 Lorazepam 1 mg/ Syringe 1 ml @ 1 mls/min Q4H PRN IV 03/06/17 19:15 04/05/17 19:14 Review of Systems Constitutional: No fever or chills Neurological: As per history of present illness Musculoskeletal: As per history of present illness with recent right total knee arthroplasty Physical Exam Vital Signs (Past 24 Hrs): Date Time Temp Pulse Resp B/P (MAP) Pulse Ox O2 Delivery O2 Flow Rate FiO2 03/07/17 07:58 36.8 73 20 123/82 (96) 96 Room Air 03/07/17 07:45 Room Air 03/07/17 04:00 Room Air 03/07/17 03:50 36.7 72 18 117/71 (86) 96 Room Air 03/07/17 00:00 Room Air 03/06/17 23:45 36.6 70 18 117/74 (88) 94 Room Air 03/06/17 20:00 Room Air 03/06/17 19:11 36.5 86 20 124/69 (87) 95 03/06/17 16:19 36.9 94 18 118/84 (95) 97 03/06/17 16:00 Room Air 03/06/17 14:00 36.5 111 19 146/51 (82) 94 Nasal Cannula 2.0 03/06/17 13:32 36.4 129 21 99 2.0 03/06/17 13:04 129 21 134/50 (78) 99 Nasal Cannula 2.0 03/06/17 12:12 36.4 98 19 145/78 (100) 98 Nasal Cannula 2.0 03/06/17 11:21 90 18 144/79 (100) 98 2.0 The patient is a well-developed, well-nourished, female. She is alert and fully oriented. Recent and remote memory intact. Attention and concentration normal. Patient exhibits a normal spontaneous speech pattern as well as an age- appropriate fund of knowledge. Visual patterson full to confrontation. Visual acuity normal. Pupils equal round to light and accommodation. Eye movements normal. Facial sensation intact. There is no facial droop. Hearing intact. Palate elevates to midline. Shoulder shrug intact. Tongue protrudes to midline. Sensation intact. Deep tendon reflexes intact and symmetrical although cannot be performed for the right lower limb due to postsurgical dressing. Plantar responses downgoing. There is no dysdiadochokinesia or dysmetria with finger to nose or heel to simeon bilaterally with the exception of the right leg which cannot be tested. Carotid pulses normal to auscultation bilaterally, no bruits. Patient exhibits normal muscle strength and tone throughout. No atrophy. No abnormal movements observed at this time. Laboratory Results Past 24 Hours: 03/07/17 07:02 Red Blood Count 3.95, Mean Corpuscular Volume 85.3, Mean Corpuscular Hemoglobin 28.4, Mean Corpuscular Hemoglobin Concent 33.2, Mean Platelet Volume 10.2, Neutrophils (%) (Auto) 85.1, Lymphocytes (%) (Auto) 7.9, Monocytes (%) (Auto) 6.6, Eosinophils (%) (Auto) 0.0, Basophils (%) (Auto) 0.1, Neutrophils # (Auto) 13.46, Lymphocytes # (Auto) 1.25, Monocytes # (Auto) 1.04, Eosinophils # (Auto) 0.00, Basophils # (Auto) 0.01 03/07/17 07:02 Test 03/06/17 12:27 03/07/17 07:02 Direct Bilirubin < 0.1 mg/dl (0-0.2) White Blood Count 15.81 K/uL (4.8-10.8) Red Blood Count 3.95 M/uL (4.2-5.4) Hemoglobin 11.2 g/dL (12.0-16.0) Hematocrit 33.7 % (37-47) Mean Corpuscular Volume 85.3 fL (80-100) Mean Corpuscular Hemoglobin 28.4 pg (25-34) Mean Corpuscular Hemoglobin Concent 33.2 g/dl (32-36) Platelet Count 291 K/uL (130-400) Mean Platelet Volume 10.2 fL (7.4-10.4) Neutrophils (%) (Auto) 85.1 % Lymphocytes (%) (Auto) 7.9 % Monocytes (%) (Auto) 6.6 % Eosinophils (%) (Auto) 0.0 % Basophils (%) (Auto) 0.1 % Neutrophils # (Auto) 13.46 K/uL (1.4-6.5) Lymphocytes # (Auto) 1.25 K/uL (1.2-3.4) Monocytes # (Auto) 1.04 K/uL (0.11-0.59) Eosinophils # (Auto) 0.00 K/uL (0-0.5) Basophils # (Auto) 0.01 K/uL (0-0.2) RDW Standard Deviation 44.9 fL (36.4-46.3) RDW Coefficient of Variation 14.3 % (11.5-14.5) Immature Granulocyte % (Auto) 0.3 % Immature Granulocyte # (Auto) 0.05 K/uL (0.00-0.02) Prothrombin Time 10.6 SECONDS (9.0-12.0) Prothromb Time International Ratio 1.0 (0.9-1.1) Anion Gap 6.0 mmol/L (3-11) Est Creatinine Clear Calc Drug Dose 94.6 ml/min Estimated GFR () 115.5 Estimated GFR (Non- 99.6 BUN/Creatinine Ratio 21.8 (10-20) Calcium Level 8.3 mg/dl (8.5-10.1) Total Bilirubin 0.3 mg/dl (0.2-1) Aspartate Amino Transf (AST/SGOT) 10 U/L (15-37) Alanine Aminotransferase (ALT/SGPT) 18 U/L (12-78) Alkaline Phosphatase 70 U/L (45-117) Total Creatine Kinase 79 U/L (26-192) Total Protein 6.2 gm/dl (6.4-8.2) Albumin 2.8 gm/dl (3.4-5.0) Globulin 3.4 gm/dl (2.5-4.0) Albumin/Globulin Ratio 0.8 (0.9-2) Impression Generalized involuntary movements occurring in the postoperative time frame after undergoing right total knee arthroplasty. These movements were felt to be potentially related to exposure to Reglan which was administered along with several other medications prior to spinal anesthesia. The movements did eventually resolve after she was treated with IV Benadryl, IV lorazepam, and eventually Cogentin. 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 Plan No further evaluation or treatment necessary Patient should avoid Reglan in the future.
[2017-03-07 12:19] VITALS: BP 132/84; PULSE 60; TEMP 36.6; O2SAT 94
[2017-03-07 15:39] VITALS: BP 148/94; PULSE 109; TEMP 36.9; O2SAT 93
[2017-03-07 19:11] VITALS: BP 145/82; PULSE 69; TEMP 36.7; O2SAT 93
[2017-03-07] MEDS: SENNA 8.6 MG TAB PO SCH (19:38)
[2017-03-07 23:28] VITALS: BP 162/88; PULSE 65; TEMP 36.7; O2SAT 99
[2017-03-08 03:35] VITALS: BP 155/88; PULSE 85; TEMP 36.7; O2SAT 95
[2017-03-08] MEDS: OXYCODONE HCL IR 5 MG TAB (IMMEDIATE RELEASE) PO PRN (03:42)
[2017-03-08] MEDS: SODIUM CHLORIDE 0.9% 1000ML 1,000 ML IV SCH (06:45)
[2017-03-08] MEDS: FERROUS GLUCONATE 324 MG TAB PO SCH ×2 (07:14→11:45)
[2017-03-08] MEDS: MULTIVITAMIN TAB PO SCH (07:15)
[2017-03-08] MEDS: RIVAROXABAN 10 MG TAB PO SCH (07:15)
[2017-03-08] MEDS: DOCUSATE SODIUM 100 MG CAP PO SCH (07:17)
[2017-03-08 07:30] VITALS: BP 150/85; PULSE 70; TEMP 36.7; O2SAT 97
--- NOTE | 2017-03-08 07:56 | Orthopedic Progress Note ---
Orthopedic Progress Note Date of Service Mar 08, 2017. Subjective Post OP Day: 2 Reports: feeling well, Denies: chest pain, SOB, nausea / vomiting, light headedness, calf pain Additional Notes: Mild pain off and on. No other complaints. States she had a small skin blister at the proximal portion of her Prevena dressing that broken open during the night. Discussed that if she developed any other blisters under the Tegaderm like dressing, to just remove the Prevena dressing. Objective calves soft nontender, N/V intact, dressing C/D/I (Prevena intact), A&O x3, toes mobile Small reddened area proximally where she had her small blister. No purulence or drainage noted. Date Time Temp Pulse Resp B/P (MAP) Pulse Ox O2 Delivery O2 Flow Rate FiO2 03/08/17 07:30 36.7 70 20 150/85 (106) 97 Room Air 03/08/17 07:21 Room Air 03/08/17 04:00 Room Air 03/08/17 03:35 36.7 85 16 155/88 (110) 95 Room Air 03/08/17 00:00 Room Air 03/07/17 23:28 36.7 65 16 162/88 (112) 99 Room Air 03/07/17 20:00 Room Air 03/07/17 19:11 36.7 69 18 145/82 (103) 93 Room Air 03/07/17 15:39 36.9 109 18 148/94 (112) 93 Room Air 03/07/17 15:25 Room Air 03/07/17 12:19 36.6 60 20 132/84 (100) 94 Room Air 03/07/17 11:21 Room Air 03/07/17 07:58 36.8 73 20 123/82 (96) 96 Room Air Assessment & Plan Assessment: POD#2 s/p R TKA Plan: -Clinda x 24hr -Xarelto for DVT ppx -WBAT RLE -PT/OT -Maintain Prevena incision vac -Plan for dc to home today Inhouse Planning Pain Management: Morphine, PO Tylenol, Oxy IR DVT Prophylaxis: TEDs, SCDs, Xarelto Discharge Planning Discharge Planning: home with home health Pain Management: PO Tylenol, Oxy IR DVT Prophylaxis: TEDs, Xarelto Therapy: Physical Therapy
[2017-03-08] MEDS ORDERED: SENN-61 PO ×2 (08:02→08:03)
[2017-03-08 12:00] VITALS: BP 138/74; PULSE 74; TEMP 36.5; O2SAT 98
[2017-03-08 12:08] VITALS: BP 155/93; PULSE 68; TEMP 36.8; O2SAT 98
[2017-03-08 12:51] VITALS: BP 155/93; PULSE 68; TEMP 36.8; O2SAT 98
--- NOTE | 2017-03-17 15:44 | Hospitalist Progress Note ---
Hospitalist Progress Note Date of Service Mar 17, 2017. (Margaret Barboza PA-C) Subjective Subjective Pt evaluation today including: conversation w/ patient, physical exam, chart review, lab review, review of studies Pain: Mild R knee pain PO Intake: Good Voiding: no voiding problems The patient was seen and examined this morning. Pt reports doing ok. She was seen working with PT and seemed to do well. Still having some paresthesias in her right foot, but feels this is due a cramping sensation she feels in the right thigh. She reports not remembering ~3 hour period yesterday when she was having the issue with shaking, but has not experienced anything like this since that time. No soreness or muscle cramping otherwise. Pt denies any other acute complaints. Pt tolerated breakfast without difficulty and had a BM this morning. Social Hx: Pt reports having an gordy family, but considers herself a "fence jumper" since she transitioned to Irish. 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 Since then trailed PT/OT, got a hot tub for relief, and also did corticosteroid injections. Pt notes she butchered the cow that kicked her. ROS: 6 point ROS reviewed and otherwise negative. (Margaret Barboza PA-C) Objective - Hospitalist Objective Vital Signs Date Time Temp Pulse Resp B/P (MAP) Pulse Ox O2 Delivery O2 Flow Rate FiO2 03/07/17 07:58 36.8 73 20 123/82 (96) 96 Room Air 03/07/17 04:00 Room Air 03/07/17 03:50 36.7 72 18 117/71 (86) 96 Room Air 03/07/17 00:00 Room Air 03/06/17 23:45 36.6 70 18 117/74 (88) 94 Room Air 03/06/17 20:00 Room Air 03/06/17 19:11 36.5 86 20 124/69 (87) 95 03/06/17 16:19 36.9 94 18 118/84 (95) 97 03/06/17 16:00 Room Air 03/06/17 14:00 36.5 111 19 146/51 (82) 94 Nasal Cannula 2.0 03/06/17 13:32 36.4 129 21 99 2.0 03/06/17 13:04 129 21 134/50 (78) 99 Nasal Cannula 2.0 03/06/17 12:12 36.4 98 19 145/78 (100) 98 Nasal Cannula 2.0 03/06/17 11:21 90 18 144/79 (100) 98 2.0 03/06/17 10:48 73 18 130/81 (97) 96 Nasal Cannula 2.0 03/06/17 10:34 98 Nasal Cannula 2.0 03/06/17 10:15 98 Room Air 2.0 03/06/17 10:15 36.6 71 18 122/61 (81) 98 Room Air 2.0 03/06/17 10:00 36.9 74 16 124/68 98 Nasal Cannula 2 03/06/17 09:50 79 16 122/79 98 Nasal Cannula 2 03/06/17 09:40 73 16 133/79 98 Nasal Cannula 2 03/06/17 09:30 72 16 121/77 95 Nasal Cannula 2 03/06/17 09:20 84 16 126/71 95 Nasal Cannula 2 (Margaret Barboza PA-C) Physical Exam General Appearance: WD/WN, no apparent distress, + obese Eyes: PERRL, EOMI ENT: hearing grossly normal, pharynx normal Neck: supple, no JVD Respiratory/Chest: lungs clear, no respiratory distress, no accessory muscle use Cardiovascular: regular rate, rhythm, no murmur Abdomen: normal bowel sounds, non tender, soft Extremities: non-tender, no pedal edema, no calf tenderness, + pertinent finding (R leg wrapped in TIMBO, hemovac drain in placed, + numbness and tingling into the distal foot, good active ROM with PT) Neurologic/Psychiatric: alert, normal mood/affect, oriented x 3 Skin: normal color, warm/dry (Margaret Barboza PA-C) Laboratory Results Last 24 Hours Test 03/06/17 12:27 03/06/17 19:50 03/07/17 07:02 Total Bilirubin 0.3 mg/dl 0.3 mg/dl Direct Bilirubin < 0.1 mg/dl Aspartate Amino Transf (AST/SGOT) 13 U/L 10 U/L Alanine Aminotransferase (ALT/SGPT) 24 U/L 18 U/L Alkaline Phosphatase 87 U/L 70 U/L Total Protein 6.8 gm/dl 6.2 gm/dl Albumin 3.0 gm/dl 2.8 gm/dl Total Creatine Kinase 114 U/L 79 U/L White Blood Count 15.81 K/uL Red Blood Count 3.95 M/uL Hemoglobin 11.2 g/dL Hematocrit 33.7 % Mean Corpuscular Volume 85.3 fL Mean Corpuscular Hemoglobin 28.4 pg Mean Corpuscular Hemoglobin Concent 33.2 g/dl Platelet Count 291 K/uL Mean Platelet Volume 10.2 fL Neutrophils (%) (Auto) 85.1 % Lymphocytes (%) (Auto) 7.9 % Monocytes (%) (Auto) 6.6 % Eosinophils (%) (Auto) 0.0 % Basophils (%) (Auto) 0.1 % Neutrophils # (Auto) 13.46 K/uL Lymphocytes # (Auto) 1.25 K/uL Monocytes # (Auto) 1.04 K/uL Eosinophils # (Auto) 0.00 K/uL Basophils # (Auto) 0.01 K/uL RDW Standard Deviation 44.9 fL RDW Coefficient of Variation 14.3 % Immature Granulocyte % (Auto) 0.3 % Immature Granulocyte # (Auto) 0.05 K/uL Prothrombin Time 10.6 SECONDS Prothromb Time International Ratio 1.0 Sodium Level 141 mmol/L Potassium Level 3.8 mmol/L Chloride Level 110 mmol/L Carbon Dioxide Level 24 mmol/L Anion Gap 6.0 mmol/L Blood Urea Nitrogen 15 mg/dl Creatinine 0.70 mg/dl Est Creatinine Clear Calc Drug Dose 94.6 ml/min Estimated GFR () 115.5 Estimated GFR (Non- 99.6 BUN/Creatinine Ratio 21.8 Random Glucose 126 mg/dl Calcium Level 8.3 mg/dl Globulin 3.4 gm/dl Albumin/Globulin Ratio 0.8 (Margaret Barboza PA-C) A&P - Hospitalist Assessment and Plan 51 years old female with no significant past medical history, status post right total knee arthroplasty, developed acute involuntarily movement Assessment Involuntary extrapyramidal tract movement/akathisia/dystonia likely reaction to Reglan - Resolved likely with combination of benadryl IV/ativan IV/ 1 mg Cogentin IV - CPK checked and is 79 - no rhabdo - Cr is baseline = 0.70 with adequate Cr. clearance - D/c fluids if tolerating PO intake Arthritis status post successful right total knee replacement - pain management, bowel regimen and DVT ppx per primary team - hemovac drain in place - PT/OT on board CODE status: FULL Disposition: From home, likely discharge within 24 hours per primary team Thank you for involving us in the care of Ms. Martinez, at this time medicine will sign off. (Margaret Barboza, SHAQ) (Margaret Barboza, SHAQ) I personally interviewed and examined the patient. I agree with history of present illness and physical exam mentioned above, I also performed my own history taking and examination. Past medical history and review of system has been obtained by myself I reviewed all pertinent labs and studies Reviewed current medications I discussed and formulated of the assessment and plan mentioned above. Please refer to the Summary mentioned below. Please repair to a separate progress note that I summarized physical exam and assessment and plan end Evens Whiteside [facility] (Evens iSms MD)
--- NOTE | 2017-03-17 16:58 | Discharge Summary ---
Orthopedic Discharge Summary Admission Date/Reason Mar 06, 2017 at 05:35 Right Knee Osteoarthritis. Discharge Date/Disposition Mar 08, 2017 Home Diagnosis Principal Diagnosis: S/P Right TKA Medication Reconciliation as per discharge instructions Admission Physical Exam As per Admitting History & Physical. Hospital Course POD#1 patient was feeling well. She was having involuntary movements after her surgery but those have seemed to stop. She was to be discharged day 1 or day 2 post op depending on medical clearance. POD#2 patient was feeling well. Pain was well controlled. There was some skin blisters around her prevena dressing. She was told if more come up she was to take off the dressing. She was discharged home later that day. Discharge Instructions Please refer to the electronic Patient Visit Report (Discharge Instructions) for additional information.
== END 2017-03-08 13:45 | disposition home health service (06) | DRG 470 ==
LOC: C.ACU 05:18 → C.3E 05:35 → ENRESERV 09:51 → C.2T 13:57
PROVIDERS: ADMIT Orthopaedic Surgery; ATTEND Orthopaedic Surgery
PROC: 0SRC0J9 Replacement of Right Knee Joint with Synthetic Substitute, Cemented, Open Approach (ICD-10-PCS; principal; 2017-03-06 07:00)
DX: M17.11 Unilateral primary osteoarthritis, right knee (principal); R25.8 Other abnormal involuntary movements; T45.0X5A Adverse effect of antiallergic and antiemetic drugs, initial encounter; Z79.899 Other long term (current) drug therapy; Z88.2 Allergy status to sulfonamides

== ENCOUNTER 2024-07-11 11:29 | Inpatient (IN) ==
--- NOTE | 2024-07-11 12:50 | Emergency Department Note ---
History of Present Illness General Chief complaint: Weakness Stated complaint: RIGHT SIDE WEAKNESS Time Seen by Provider: 07/11/24 12:12 History of Present Illness Maximum Pain Intensity: 0 This is a 58-year-old female who presents to the emergency department via private vehicle with complaints of "right leg weakness". The patient states that she has been experiencing left knee pain for some time now, and has been feeling "pops" in the left knee/snapping noises. Secondary to this she notes she has been relying on the right leg. However, she states that beginning this past Thursday morning she now is "dragging" the right leg when she attempts to ambulate. She states that while sitting she is able to fully flex and extend at the knees as well as ankles and feet and there are no issues however when she tries to stand and step forward with the right leg she feels like it will not work as intended. She denies any trauma or injury to the right lower extremity. No speech trouble. When I inquire about the right upper extremity, she notes that maybe it felt a little off at times but notes no weakness at the present time. She denies any headache or neck pain. No chest pain or abdominal pain. No back pain. However she notes she feels a "pulling" sensation to the right low back with certain movements. She notes she is otherwise healthy but does note only 1 kidney that is functioning. She notes kidney surgery at age 4. She also notes history of right knee replacement. No fevers or chills. No nausea or vomiting. She denies any bowel or bladder incontinence. No numbness or tingling in the genital region. Home Medications Medication Instructions Recorded Confirmed Type Tylenol 1 tab PO DIRECTED PRN Pain 07/11/24 07/11/24 History Allergies Allergy/AdvReac Type Severity Reaction Status Date / Time metoclopramide Allergy Severe Involuntary Verified 03/07/17 09:20 movement, limb shaking/jerking Sulfa (Sulfonamide Allergy Unknown LYMPH Verified 03/06/17 05:48 Antibiotics) NODES HARDEN AND SWELL Past Med/Surg History Problem List (Updated 07/11/24 @ 22:38 by Denzel Dawson PA-C) Weakness of right lower extremity (Acute) Effusion of left knee (Acute) Acute pain of left knee (Acute) Ambulatory dysfunction (Acute) Bee sting Medical History (Updated 07/11/24 @ 22:38 by Denzel Dawson PA-C) Ambulatory dysfunction Rheumatoid arthritis Right knee DJD Surgical History (Updated 07/11/24 @ 16:53 by IRENA Mora) Status post right knee replacement Social History Smoking Status: Never smoker Second Hand Exposure: Yes; Hx Alcohol Use: No Hx Substance Use: No Preferred Language: Frisian Communication Ability: Effective 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 Beliefs That Will Affect Care: None Current Living Situation: Spouse Other Information That Helps Us Care for You: No Feels Safe at Home: Yes Assistive Devices: Cane and Walker Review of Systems A total of 10 systems reviewed and were otherwise negative Physical Exam Vital Signs Vital Signs - 24 hr 07/11/24 11:33 07/11/24 12:50 07/11/24 14:26 Temperature 36.8 C Temperature Source Temporal Artery Scan Pulse Rate 88 Pulse Rate [Apical] 76 Respiratory Rate 18 16 Respiratory Effort / Characteristics Non-Labored Spontaneous Respiratory Depth Normal Respiratory Pattern Regular Blood Pressure 142/87 H Blood Pressure [Right Arm] 141/92 H Blood Pressure Mean 105 Blood Pressure Mean [Right Arm] 108 Pulse Oximetry 96 98 99 Oxygen Delivery Method Room Air Room Air Room Air Sepsis Recent Fever Within 48 Hours No Sepsis New/Unexplained Change in Mental Status N/A Sepsis Action Taken by Nursing No Action Required VITAL SIGNS - Vital signs and nursing notes were reviewed. Stable and afebrile. GENERAL -58-year-old female appearing her stated age. Communicates well with provider and answers questions appropriately. SKIN - Gross examination of the entire body surface demonstrates no lacerations to the body to the surface. HEAD - Normocephalic, Atraumatic. EYES - PERRL with EOMI bilaterally. Without subconjunctival hemorrhage. EARS - No deformities of external structures noted on gross examination bilaterally. NOSE - Midline and without cyanosis. No epistaxis or clear watery discharge noted. Septum midline without deviation. No septal hematoma noted. No overlying ecchymosis noted. MOUTH/OROPHARYNX - Without perioral cyanosis. Tongue protrudes midline interrupted. NECK -no tenderness to palpation over the cervical spinous processes. No cervical paraspinal muscle tenderness noted. No nuchal rigidity. LUNGS -clear to auscultation. CARDIAC - RRR ABDOMEN - Abdominal contour normal and without pulsations or visible masses. BS normoactive all four quadrants. No tenderness. EXTREMITIES - No gross deformities noted of the extremities. Patient is able to stand from a seated position but is slow to do so and does require the assistance of the arm rails of the chair. However when I asked the patient to step forward with the right leg she is unable to do so noting that it will not move. However when she sits in the chair she is able to fully flex and extend at the knees, ankle and feet against resistance without deficit appreciated. +5/5 strength noted in UE/LE bilaterally. NEUROLOGIC - Cranial nerves II through XII grossly intact. The extremities are appropriately warm and well-perfused. Bilateral patellar reflexes within normal limits. No sensory deficits. PSYCH -alert, oriented and pleasant on exam. Course Administered Medications Doxycycline Hyclate 100 mg/ (Dextrose) 100 mls @ 50 mls/hr IV Q12H WHIT Stop: 07/18/24 17:59 Last Infusion: 07/11/24 20:48 Dose: Infused Documented By: Admin: 07/11/24 18:38 Dose: 50 mls/hr Documented By: GABY Pantoprazole Sodium (Protonix) 40 mg in 10 mls @ 5 mls/min IV BID WHIT Stop: 08/10/24 20:59 Last Admin: 07/11/24 20:59 Dose: 5 mls/min Documented By: ANABELLA Ibuprofen (Ibuprofen 200 Mg/10 Ml Udc) 600 mg PO TID WHIT Stop: 08/10/24 20:59 Last Admin: 07/11/24 20:55 Dose: Not Given Documented By: ANABELLA Discontinued Medications Miscellaneous (Patient's Weight Needed) 1 each N/A Q30M WHIT Stop: 08/10/24 17:14 Last Admin: 07/11/24 19:11 Dose: Not Given Documented By: Admin: 07/11/24 19:11 Dose: Not Given Documented By: Admin: 07/11/24 19:11 Dose: Not Given Documented By: KIANNA Miscellaneous (Patient's Height &/Or Weight Needed) 1 each N/A Q30M [facility] Stop: 08/10/24 18:14 Last Admin: 07/11/24 19:11 Dose: Not Given Documented By: KIANNA Prednisone (Prednisone 20 Mg Tab) 40 mg PO ONE ONE Stop: 07/11/24 18:01 Last Admin: 07/11/24 18:37 Dose: 40 mg Documented By: GABY Medical Decision Making Laboratory Data 07/11/24 12:40 07/11/24 12:40 Lab Results 07/11/24 07/11/24 Range/Units 12:40 14:27 WBC 7.66 (4.8-10.8) K/ul RBC 5.04 (4.20-5.40) M/uL Hgb 12.9 (12.0-16.0) g/dl Hct 40.9 (37.0-47.0) % MCV 81.2 (80.0-100.0) fL MCH 25.6 (25.0-34.0) pg MCHC 31.5 L (32.0-36.0) g/dL RDW Std Deviation 41.9 (36.4-46.3) fL RDW Coeff of Zeeshan 14.3 (11.5-14.5) % Plt Count 384 (130-400) K/uL MPV 9.2 L (9.4-12.4) fL Immature Gran % (Auto) 0.3 % Neut % (Auto) 76.2 % Lymph % (Auto) 13.7 % [place] % (Auto) 8.1 % Eos % (Auto) 1.4 % Baso % (Auto) 0.3 % Neut # (Auto) 5.84 (1.40-6.50) K/uL Lymph # (Auto) 1.05 L (1.20-3.40) K/uL [place] # (Auto) 0.62 H (0.11-0.59) K/uL Eos # (Auto) 0.11 (0.00-0.50) K/uL Baso # (Auto) 0.02 (0.00-0.20) K/uL Immature Gran # (Auto) 0.02 (0.01-0.20) K/uL ESR 127 H (0-30) mm/hr PT Cancelled 11.3 INR Cancelled 1.0 APTT Cancelled 25 PTT Ratio Cancelled 0.9 Sodium 137 (136-145) mmol/L Potassium 3.8 (3.5-5.1) mmol/L Chloride 102 (98-107) mmol/L Carbon Dioxide 28 (21-32) mmol/L Anion Gap 7 (3-11) BUN 11 (6-23) mg/dl Creatinine 0.61 (0.6-1.2) mg/dl Est Cr Clr Drug Dosing Not Reportable eGFR 102.92 BUN/Creatinine Ratio 18.0 (10-20) Glucose 83 (70-99(Fasting)) mg/dl Uric Acid 4.0 (2.6-7.2) mg/dl Calcium 9.6 (8.6-10.3) mg/dl Magnesium 1.9 (1.7-2.4) mg/dl Total Bilirubin 0.4 (0.2-1.0) mg/dl AST 9 L (13-39) U/L ALT 7 (7-52) U/L Alkaline Phosphatase 85 (34-104) U/L Total Protein 8.5 H (6.0-8.3) gm/dl Albumin 3.9 (3.4-5.0) gm/dl Globulin 4.6 H (2.5-4.0) gm/dl Albumin/Globulin Ratio 0.8 L (0.9-2) TSH 2.456 (0.300-4.500) uIu/ml Lyme Disease Screen Negative (Negative) Imaging Data Radiologist's Impression: Head CT 07/11/24 12:31 CT head/brain wo con CLINICAL HISTORY: 58 years-old Female with R leg weakness. Acute strokelike symptoms TECHNIQUE: Multiple axial CT images of the head were obtained without contrast. A dose lowering technique was utilized adhering to the principles of ALARA. CT DOSE: 625.8 mGy.cm COMPARISON: None. FINDINGS: No acute intracranial hemorrhage, midline shift, intracranial mass, hydrocephalus, territorial ischemia or abnormal extra-axial collection. The calvarium is intact. The paranasal sinuses, mastoid air cells, and middle ear cavities are clear. IMPRESSION: No acute intracranial abnormality. ACT 112: Negative or not required by law. The above report was generated using voice recognition software. It may contain grammatical, syntax or spelling errors. Electronically signed by: Lavelle Jesus M.D. 07/11/2024 1:12 PM Knee X-Ray 07/11/24 12:31 XR knee LT 3V CLINICAL HISTORY: Left knee pain. No trauma. COMPARISON: None FINDINGS: No acute fractures are identified. There is a moderate-sized joint effusion. Severe compartmental joint space narrowing is noted with [id number] appearance. There is associated bony remodeling with osteophytosis and subchondral sclerosis. IMPRESSION: 1. No fractures within the left knee. 2. Severe tricompartmental osteoarthritis of the left knee. 3. Moderate-sized joint effusion. ACT 112: Negative or not required by law. Electronically signed by: Tevin Gilman M.D. 07/11/2024 3:45 PM Lumbar Spine MRI 07/11/24 12:31 MRI OF THE LUMBAR SPINE WITHOUT CONTRAST CLINICAL HISTORY: Right leg weakness. COMPARISON STUDY: No previous studies for comparison. TECHNIQUE: Utilizing a 3 Mariangel magnet and dedicated coil, multiplanar, multiecho imaging of the lumbar spine was performed without IV contrast. FINDINGS: This exam is mildly compromised by artifact. For purposes of numbering on this exam, the L5-S1 disc space is assigned to axial image 23 of 25. Vertebral body heights are maintained. There is 3 mm of anterolisthesis of L5 on S1. There are equivocal bilateral L5 pars defects. There is no intracanalicular mass or fluid collection. Conus terminates at the mid L1 level. Paravertebral soft tissues are unremarkable. L1-2: The central canal and neural foramen are patent. L2-3: The central canal and neural foramen are patent. The central canal and neural foramen are patent. There is mild facet arthrosis. L3-4: The central canal and neural foramen are patent. There is mild facet arthrosis. L4-5: The central canal and neural foramen are patent. There is moderate facet arthrosis with minimal disc bulge. L5-S1: Grade I anterolisthesis is present. The central canal and neural foramen are patent. There is moderate facet arthrosis. IMPRESSION: 1. Mild degenerative disc disease and moderate facet arthrosis within the lumbar spine. 2. Patent central canal and neural foramen. 3. Grade I anterolisthesis of L5 on S1 with possible L5 pars defects. ACT 112: Negative or not required by law. Electronically signed by: Tevin Gilman M.D. 07/11/2024 2:08 PM Venous Doppler Study 07/11/24 12:31 LEFT LOWER EXTREMITY VENOUS DOPPLER CLINICAL HISTORY: Left leg pain and edema. Evaluate for deep venous thrombus. COMPARISON STUDY: No previous studies for comparison. TECHNIQUE: Sonography of the deep venous system of the left lower extremity was performed. Compression and augmentation were evaluated. FINDINGS: The left common femoral, superficial femoral and popliteal veins were compressible. Augmentation was normal. Flow was shown within the deep calf vessels. IMPRESSION: No evidence of deep venous thrombus within the left lower extremity. ACT 112: Negative or not required by law. Electronically signed by: Tevin Gilman M.D. 07/11/2024 3:38 PM Brain MRI 07/11/24 13:16 MRI OF THE BRAIN WITHOUT IV CONTRAST CLINICAL HISTORY: Difficulty ambulating. Right leg weakness. Buttock numbness. COMPARISON STUDY: Head CT performed earlier today. TECHNIQUE: MRI of the brain was performed utilizing various T1 and T2-weighted sequences in the axial, sagittal, and coronal planes. IV contrast was not administered for this examination. FINDINGS: Brain parenchyma: There are no foci of restricted diffusion to suggest acute infarct. No acute intracranial hemorrhage, midline shift or mass effect is present. No intracranial masses are identified on unenhanced exam. Several small white matter T2 hyperintense foci within the bilateral frontal lobes may represent mild small vessel disease or sequela of migraine headaches. These are of doubtful significance. Ventricles, sulci, and cisterns: There is no hydrocephalus. The basal cisterns are patent. There are no extra-axial collections. Pituitary and sella: Unremarkable. Intracranial vasculature: Flow-voids for the major intracranial vessels are present. Orbits: Orbital contents are unremarkable. Sinuses and mastoids: Secretions and an air-fluid level within left sphenoid sinus are noted. Calvarium: No calvarial lesions are identified. Cervical cord: Partially visualized cervical spinal cord is normal in morphology and signal intensity. IMPRESSION: No acute intracranial findings. ACT 112: Negative or not required by law. Electronically signed by: Tevin Gilman M.D. 07/11/2024 1:50 PM [facility] Narrative Patient was seen and evaluated as above in room D06. Review was performed of triage nursing notes and vital signs. Patient presents to us today noting right leg weakness subjectively. On my examination there is no objective weakness, but when I have the patient stand and attempt to step forward with the right leg she will not move the right leg noting it will not move. She feels like she is dragging the leg. She denies any pain. EKG was performed per my interpretation revealing normal sinus rhythm, at a rate of 66 bpm. QTc [address] elevation Options of care were discussed with the patient. IV access was established. Labs are drawn. Patient did note that the right arm at times may have been feeling the same way/right side of her body therefore we will proceed with brain imaging. Symptoms began this past Thursday, several days ago. CT head was obtained and was negative. Patient sent to the MR suite and underwent imaging of the brain and L-spine. These were without significant finding that would contribute to symptoms today. Left knee x-ray reveals effusion and arthritis. No evidence of septic joint clinically. Ultrasound left leg negative for DVT. Labs reveal no leukocytosis or concerning anemia. No evidence of kidney or liver failure. Coags are normal. TSH reveals euthyroid state. Urinalysis reveals what is likely contaminated sample without clear evidence of UTI. Lyme screen negative. With the patient noting that she is "dragging" the right leg which is new for her I do believe that further evaluation and management in the inpatient setting is warranted. Case discussed with the hospitalist service. Please refer to further documentation regarding her stay. Case discussed with the ED attending physician. GCS: 15 In the evaluation and treatment of this patient the following differential diagnoses were entertained: CVA, TIA, cauda equina syndrome, lumbar radiculopathy, cord injury, inflammatory process, among others Impression & Plan Ambulatory dysfunction, Acute pain of left knee, Effusion of left knee, Weakness of right lower extremity Discharge Plan Visit Data Chief Complaint: Weakness Stated Complaint: RIGHT SIDE WEAKNESS ED Provider: Jose Ennis ED Midlevel Provider: Denzel Dawson Discharge Problem: Ambulatory dysfunction, Acute pain of left knee, Effusion of left knee, Weakness of right lower extremity Patient Disposition: Admitted As Inpatient Condition: Good Discharge Instructions Interventions: ED Discharge Assessment Last Done: 07/11/24 17:54
[2024-07-11 13:06] LABS: Basophils # (auto) 0.02 K/uL (0.00-0.20); Basophils % (auto) 0.3 %; Eosinophils # (auto) 0.11 K/uL (0.00-0.50); Eosinophils % (auto) 1.4 %; Hematocrit (blood only) 40.9 % (37.0-47.0); Hemoglobin 12.9 g/dl (12.0-16.0); Immature Granulocytes # (auto) 0.02 K/uL (0.01-0.20); Immature Granulocytes % (auto) 0.3 %; Lymphocytes # (auto) 1.05 K/uL (1.20-3.40); Lymphocytes % (auto) 13.7 %; Mean Corpuscular Hemoglobin 25.6 pg (25.0-34.0); Mean Corpuscular Hgb Conc 31.5 g/dL (32.0-36.0); Mean Corpuscular Volume 81.2 fL (80.0-100.0); Mean Platelet Volume 9.2 fL (9.4-12.4); Monocytes # (auto) 0.62 K/uL (0.11-0.59); Monocytes % (auto) 8.1 %; Neutrophils # (auto) 5.84 K/uL (1.40-6.50); Neutrophils % (auto) 76.2 %; Platelet Count 384 K/uL (130-400); RDW Coefficient of Variation 14.3 % (11.5-14.5); RDW Standard Deviation 41.9 fL (36.4-46.3); Red Blood Count 5.04 M/uL (4.20-5.40); White Blood Count 7.66 K/ul (4.8-10.8)
--- NOTE | 2024-07-11 13:13 | CT Scan Report ---
CT head/brain wo con CLINICAL HISTORY: 58 years-old Female with R leg weakness. Acute strokelike symptoms TECHNIQUE: Multiple axial CT images of the head were obtained without contrast. A dose lowering tech nique was utilized adhering to the principles of ALARA. CT DOSE: 625.8 mGy.cm COMPARISON: None. FINDINGS: No acute intracranial hemorrhage, midline shift, intracranial mass, hydrocephalus, territorial ischem ia or abnormal extra-axial collection. The calvarium is intact. The paranasal sinuses, mastoid air cells, and middle ear cavities are clear . IMPRESSION: No acute intracranial abnormality. ACT 112: Negative or not required by law. The above report was generated using voice recognition software. It may contain grammatical, syntax o r spelling errors. Electronically signed by: Lavelle Jesus M.D. 07/11/2024 1:12 PM
[2024-07-11 13:40] LABS: Alanine Aminotransferase 7 U/L (7-52); Albumin Globulin Ratio 0.8 (0.9-2); Albumin Level 3.9 gm/dl (3.4-5.0); Alkaline Phosphatase 85 U/L (34-104); Anion Gap 7 (3-11); Aspartate Aminotransferase 9 U/L (13-39); Bilirubin,Total 0.4 mg/dl (0.2-1.0); Blood Urea Nitrogen 11 mg/dl (6-23); Calcium 9.6 mg/dl (8.6-10.3); Carbon Dioxide 28 mmol/L (21-32); Chloride 102 mmol/L (98-107); Globulin 4.6 gm/dl (2.5-4.0); Glucose 83 mg/dl (70-99(Fasting)); Magnesium 1.9 mg/dl (1.7-2.4); Potassium 3.8 mmol/L (3.5-5.1); Sodium 137 mmol/L (136-145); Total Protein 8.5 gm/dl (6.0-8.3)
--- NOTE | 2024-07-11 13:51 | Magnetic Resonance Report ---
MRI OF THE BRAIN WITHOUT IV CONTRAST CLINICAL HISTORY: Difficulty ambulating. Right leg weakness. Buttock numbness. COMPARISON STUDY: Head CT performed earlier today. TECHNIQUE: MRI of the brain was performed utilizing various T1 and T2-weighted sequences in the axial , sagittal, and coronal planes. IV contrast was not administered for this examination. FINDINGS: Brain parenchyma: There are no foci of restricted diffusion to suggest acute infarct. No acute intrac ranial hemorrhage, midline shift or mass effect is present. No intracranial masses are identified on unenhanced exam. Several small white matter T2 hyperintense foci within the bilateral frontal lobes m ay represent mild small vessel disease or sequela of migraine headaches. These are of doubtful signif icance. Ventricles, sulci, and cisterns: There is no hydrocephalus. The basal cisterns are patent. There are no extra-axial collections. Pituitary and sella: Unremarkable. Intracranial vasculature: Flow-voids for the major intracranial vessels are present. Orbits: Orbital contents are unremarkable. Sinuses and mastoids: Secretions and an air-fluid level within left sphenoid sinus are noted. Calvarium: No calvarial lesions are identified. Cervical cord: Partially visualized cervical spinal cord is normal in morphology and signal intensity . IMPRESSION: No acute intracranial findings. ACT 112: Negative or not required by law. Electronically signed by: Tevin Gilman M.D. 07/11/2024 1:50 PM
[2024-07-11 13:53] LABS: Thyroid Stimulating Hormone 2.456 uIu/ml (0.300-4.500)
--- NOTE | 2024-07-11 14:10 | Magnetic Resonance Report ---
MRI OF THE LUMBAR SPINE WITHOUT CONTRAST CLINICAL HISTORY: Right leg weakness. COMPARISON STUDY: No previous studies for comparison. TECHNIQUE: Utilizing a 3 Mariangel magnet and dedicated coil, multiplanar, multiecho imaging of the lumb ar spine was performed without IV contrast. FINDINGS: This exam is mildly compromised by artifact. For purposes of numbering on this exam, the L5-S1 disc s pace is assigned to axial image 23 of 25. Vertebral body heights are maintained. There is 3 mm of ant erolisthesis of L5 on S1. There are equivocal bilateral L5 pars defects. There is no intracanalicular mass or fluid collection. Conus terminates at the mid L1 level. Paravertebral soft tissues are unrem arkable. L1-2: The central canal and neural foramen are patent. L2-3: The central canal and neural foramen are patent. The central canal and neural foramen are paten t. There is mild facet arthrosis. L3-4: The central canal and neural foramen are patent. There is mild facet arthrosis. L4-5: The central canal and neural foramen are patent. There is moderate facet arthrosis with minimal disc bulge. L5-S1: Grade I anterolisthesis is present. The central canal and neural foramen are patent. There is moderate facet arthrosis. IMPRESSION: 1. Mild degenerative disc disease and moderate facet arthrosis within the lumbar spine. 2. Patent central canal and neural foramen. 3. Grade I anterolisthesis of L5 on S1 with possible L5 pars defects. ACT 112: Negative or not required by law. Electronically signed by: Tevin Gilman M.D. 07/11/2024 2:08 PM
--- NOTE | 2024-07-11 15:39 | Ultrasound Report ---
LEFT LOWER EXTREMITY VENOUS DOPPLER CLINICAL HISTORY: Left leg pain and edema. Evaluate for deep venous thrombus. COMPARISON STUDY: No previous studies for comparison. TECHNIQUE: Sonography of the deep venous system of the left lower extremity was performed. Compressi on and augmentation were evaluated. FINDINGS: The left common femoral, superficial femoral and popliteal veins were compressible. Augmen tation was normal. Flow was shown within the deep calf vessels. IMPRESSION: No evidence of deep venous thrombus within the left lower extremity. ACT 112: Negative or not required by law. Electronically signed by: Tevin Gilman M.D. 07/11/2024 3:38 PM
--- NOTE | 2024-07-11 15:46 | XRay Report ---
XR knee LT 3V CLINICAL HISTORY: Left knee pain. No trauma. COMPARISON: None FINDINGS: No acute fractures are identified. There is a moderate-sized joint effusion. Severe compar tmental joint space narrowing is noted with [id number] appearance. There is associated bony remodel ing with osteophytosis and subchondral sclerosis. IMPRESSION: 1. No fractures within the left knee. 2. Severe tricompartmental osteoarthritis of the left knee. 3. Moderate-sized joint effusion. ACT 112: Negative or not required by law. Electronically signed by: Tevin Gilman M.D. 07/11/2024 3:45 PM
[2024-07-11 15:49] LABS: Partial Thromboplastin Ratio 0.9; Partial Thromboplastin Time 25 Seconds (21-31); Prothrombin Time 11.3 Seconds (9.0-12.0)
[2024-07-11] MEDS ORDERED: ALUMINUM/MAGNESIUM SUSP 30 ML UDC PO PRN (16:23)
[2024-07-11] MEDS ORDERED: ONDANSETRON INJ 2 MG/ML 2 ML VIAL IV PRN (16:23)
[2024-07-11] MEDS ORDERED: MAGNESIUM HYDROXIDE SUSP 30 ML UDC PO PRN (16:23)
[2024-07-11] MEDS ORDERED: POLYETHYLENE (MIRALAX) 17 GM PACK PO PRN (16:23)
[2024-07-11] MEDS ORDERED: ACETAMINOPHEN 325 MG TAB PO PRN (16:23)
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
[2024-07-11] MEDS: predniSONE 20 MG TAB PO ONE (18:37)
[2024-07-11] MEDS: DOXYCYCLINE HYCLATE 100 MG in DEXTROSE 5% MINI-B 100 ML IV SCH (18:38)
[2024-07-11] MEDS: Patient's HEIGHT &/or WEIGHT Needed SCH (19:11)
[2024-07-11] MEDS: Patient's WEIGHT Needed SCH (19:11)
[2024-07-11] MEDS: IBUPROFEN 200 MG/10 ML UDC PO SCH (20:55)
[2024-07-11] MEDS: PANTOprazole 40 MG/10 ML SYR IV SCH (20:59)
[2024-07-11 21:41] LABS: Appearance Urine Clear (Clear); Bacteria Urine Automated None Seen (None Seen); Bilirubin Urine Negative (Negative); Blood Urine Trace (Negative); Cast Urine Automated 0-2 /lpf (0-2); Color Urine Yellow; Glucose Urine UA Negative (Negative); Ketones Urine 1+ (Negative); Leukocyte Esterase Urine 1+ (Negative); Nitrite Urine Negative (Negative); Protein Urine Trace (Negative); Specific Gravity Urine 1.022 (1.000-1.030); Urobilinogen Urine Negative (Negative)
[2024-07-12 04:21] LABS: Hematocrit (blood only) 36.8 % (37.0-47.0); Hemoglobin 11.8 g/dl (12.0-16.0); Mean Corpuscular Hemoglobin 25.8 pg (25.0-34.0); Mean Corpuscular Hgb Conc 32.1 g/dL (32.0-36.0); Mean Corpuscular Volume 80.5 fL (80.0-100.0); Mean Platelet Volume 9.6 fL (9.4-12.4); Platelet Count 360 K/uL (130-400); Red Blood Count 4.57 M/uL (4.20-5.40); White Blood Count 5.36 K/ul (4.8-10.8)
[2024-07-12 04:38] LABS: BUN Creatinine Ratio 30.2 (10-20); Calcium 9.4 mg/dl (8.6-10.3); Creatinine Clr Calc Pharmacy 105.8 ml/min; Potassium 4.5 mmol/L (3.5-5.1)
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
[2024-07-12] MEDS: cefTRIAXone SODIUM 2,000 MG/50 ML BAG IV SCH (08:42)
[2024-07-12] MEDS: predniSONE 10 MG TABLET PO SCH (08:44)
[2024-07-12] MEDS: ENOXAPARIN INJ 40 MG/0.4 ML SYR SQ SCH (08:47)
[2024-07-12 19:51] VITALS: RESP 16
[2024-07-13 07:05] LABS: Hematocrit (blood only) 35.2 % (37.0-47.0); Hemoglobin 11.3 g/dl (12.0-16.0); Mean Corpuscular Hemoglobin 26.1 pg (25.0-34.0); Mean Corpuscular Hgb Conc 32.1 g/dL (32.0-36.0); Mean Corpuscular Volume 81.3 fL (80.0-100.0); Mean Platelet Volume 9.5 fL (9.4-12.4); Platelet Count 351 K/uL (130-400); RDW Coefficient of Variation 14.2 % (11.5-14.5); Red Blood Count 4.33 M/uL (4.20-5.40); White Blood Count 9.97 K/ul (4.8-10.8)
--- NOTE | 2024-07-13 07:13 | Hospitalist Progress Note ---
Date of Service July 13, 2024 Assessment & Plan (1) Ambulatory dysfunction: (2) Rheumatoid arthritis flare: Plan: iMtzi Martinez is a 58y/o F with PMHx significant for rheumatoid arthritis and right knee degenerative joint disease s/p total knee arthroplasty who is admitted for management of an acute rheumatoid arthritis flare. Brain MRI and lumbar spine MRI grossly unremarkable. chronic has stopped taking methotrexate two years ago due to cost Brain MRI, Lumbar Spine MRI negative (-) proximal weakness, bilateral wrist joint warmth. (+) contractures No leukocytosis, ESR 127 Ibuprofen 600 mg PO TID scheduled for now until 07/14 and reevaluate She has stopped taking Methotrexate two years ago and last saw her Top Executive at [facility] two years ago Difficulty lifting right leg. Appears neurologically intact. (-) spinal point tenderness. (-) nerve involvement with PROM. Has difficulty with lifting her right leg. (-) weakness in proximal or distal muscles. Rheumatology consult placed to assist with steroid recommendations; prednisone 40 mg IV On admission; continue on prednisone 30 mg daily PPI ordered PT/OT (3) Abnormal urinalysis: Plan: UA with evidence of trace blood, 1+ LE and 6-10 WBC. Continue IV Rocephin pending urine culture results. (4) Effusion of left knee: Plan: Knee X-ray: 1. No fractures within the left knee. 2. Severe tricompartmental osteoarthritis of the left knee. 3. Moderate-sized joint effusion. No leukocytosis, fever or chills indicating septic arthritis. Will empirically cover for now with Rocephin Would benefit from Ortho follow-up as outpatient for possible draining of left knee effusion. Plan Bee sting: Doxycycline IV ordered; given new UTI discontinue Doxycycline and placed on Rocephin. Lyme negative Disposition: PCP: Dr. Blackburn Code Status: Full Code VTE Prophylaxis: Lovenox SQ; Patient refusing Lovenox subcu will place teds and SCDs depending on PT OT evals consider discharge 07/14 with outpatient rheumatology follow-up and PCP/Ortho follow-ups arranged. Admission and Anticipated Discharge Date Admission Date: July 11, 2024 Results & Data Results & Data Vital Signs (Past 12 Hours) Vital Signs Temp Pulse Pulse Resp BP BP Pulse Ox 07/13/24 07:10 36.3 C L 69 16 137/78 95 07/12/24 19:50 36.6 C 68 16 138/80 98 07/12/24 19:20 O2 Del Method 07/13/24 07:10 Room Air 07/12/24 19:50 Room Air 07/12/24 19:20 Room Air
[2024-07-13 07:28] LABS: BUN Creatinine Ratio 36.2 (10-20); Calcium 9.2 mg/dl (8.6-10.3); Potassium 3.8 mmol/L (3.5-5.1)
--- NOTE | 2024-07-13 10:25 | Orthopedic Consultation ---
Date of Service July 13, 2024 Assessment & Plan (1) Osteoarthritis of left knee: (2) Effusion of left knee joint: Plan Assessment: Osteoarthritis of the left knee with severe tricompartmental changes, effusion of left knee. Plan: I had a long discussion today with the patient about her left knee pathology with ample amount time for patient ask any question or stating concerns. All questions concerns were answered the patient satisfaction. This point in time, I do think the effusion is secondary to the severe tricompartmental changes to the left knee. Her physical exam findings as well as with her lab work yielded very low suspicion that this would be a septic joint. This could also be just a flare from her rheumatoid arthritis going on with her left knee because of the increased workload that was going on because of the right lower extremity pathology. I did discuss with her conservative treatment as well as surgical intervention with this left knee. This point in time, she is not interested in any conservative treatment options and would like to proceed with surgical intervention. I did offer to aspirate the knee today but I did not feel that this would provide her with good relief. She would like to hold off at this time. I did also offer an intra-articular corticosteroid injection but she would also like to hold off at this time for she wishes to hopefully proceed with surgery within the next couple months and would not like to be held up for the 3-month time period to allow the steroid to work its way out of the system. She can follow-up as an outpatient in our office to discuss surgical intervention to the left knee. She would like to follow-up with Dr. Still. She may continue doing activities as tolerated to the left lower extremity. She was informed to rest, ice, and elevation procedures. She may follow-up in the office with Dr. Still to discuss the next steps in her treatment plan once she is discharged from the hospital. Case was discussed with Dr. Still today. Please reach out to [facility] orthopedics if anything is a change in this patient's care. History of Present Illness Reason for Consultation: . Left knee effusion Requesting Physician: . Attending Physician: Hansel Daniel MD . Patient is a 58-year-old female that we are asked to see in consultation today for left knee pain. She notes that about a week ago, she began to have right lower extremity weakness and discomfort after sustaining a hornet bite onto the top of her right foot. 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 Unfortunately, because of this she has been having increasing left knee pain. She does have a medical diagnosis of rheumatoid arthritis. When she came to the emergency department for all this they did complete x-rays of the left knee which did show end-stage osteoarthritis of all compartments. She did also have an effusion at that time. We were consulted for recommendations because of the knee effusion and left knee pain. On my conversation with her today she did have discomfort with range of motion. 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 She notes that [id number] oral analgesics really have touched the pain at this time. She denies any low back pain, distal extremity pain, numbness/ting, paresthesias. She denies any other concerns today. Allergies Allergy/AdvReac Type Severity Reaction Status Date / Time metoclopramide Allergy Severe Involuntary Verified 03/07/17 09:20 movement, limb shaking/jerking Sulfa (Sulfonamide Allergy Unknown LYMPH Verified 03/06/17 05:48 Antibiotics) NODES HARDEN AND SWELL Home Medications Medication Instructions Recorded Confirmed Type Tylenol 1 tab PO DIRECTED PRN Pain 07/11/24 07/11/24 History famotidine 40 mg tablet 40 mg PO DAILY #30 tabs 07/13/24 Rx prednisone 10 mg tablet 30 mg (3 x 10 mg) PO DAILY 4 days 07/13/24 Rx #12 tabs prednisone 20 mg tablet 20 mg PO DAILY #14 tabs 07/13/24 Rx Past Med/Surg History Problem List (Updated 07/13/24 @ 13:12 by Lavelle Grady PA-C) Osteoarthritis of left knee Effusion of left knee joint Abnormal urinalysis Rheumatoid arthritis flare Urinary tract infection Weakness of right lower extremity (Acute) Effusion of left knee (Acute) Acute pain of left knee (Acute) Ambulatory dysfunction (Acute) Bee sting Medical History (Updated 07/13/24 @ 13:12 by Lavelle Grady PA-C) Ambulatory dysfunction Rheumatoid arthritis Right knee DJD Surgical History (Updated 07/11/24 @ 16:53 by IRENA Mora) Status post right knee replacement Social History Smoking Status: Never smoker Second Hand Exposure: Yes; Hx Alcohol Use: No Hx Substance Use: No Preferred Language: Kyrgyz Communication Ability: Effective Plater Barrel Required: No Beliefs That Will Affect Care: None Current Living Situation: Spouse Other Information That Helps Us Care for You: No Feels Safe at Home: Yes Assistive Devices: Cane and Walker Review of Systems All systems reviewed & are unremarkable except as noted in HPI & below. Physical Exam . Constitutional: WD/WN, vitals as above no acute distress Musculoskeletal: On physical examination of left knee, she does have a flexion contracture about 20 degrees with mild soft tissue edema and trace joint effusion with no erythema, ecchymosis, or other obvious deformities. Tenderness to palpation diffusely throughout the joint line as well as under the patella. Limited range of motion secondary to discomfort. Calf soft nontender to palpation. Negative sign. Intact plantarflexion dorsiflexion to the left ankle. +2 DP and PT puls e. Less than 2-second capillary refill. Normal sensation. Neurovascular intact. Results & Data Results & Data Laboratory Results . 07/11/24 07/11/24 07/11/24 12:40 14:27 20:52 WBC 7.66 RBC 5.04 Hgb 12.9 Hct 40.9 MCV 81.2 MCH 25.6 MCHC 31.5 L RDW Std Deviation 41.9 RDW Coeff of [place] 14.3 Plt Count 384 MPV 9.2 L Immature Gran % (Auto) 0.3 Neut % (Auto) 76.2 Lymph % (Auto) 13.7 [place] % (Auto) 8.1 Eos % (Auto) 1.4 Baso % (Auto) 0.3 Neut # (Auto) 5.84 Lymph # (Auto) 1.05 L [place] # (Auto) 0.62 H Eos # (Auto) 0.11 Baso # (Auto) 0.02 Immature Gran # (Auto) 0.02 ESR 127 H PT Cancelled 11.3 INR Cancelled 1.0 APTT Cancelled 25 PTT Ratio Cancelled 0.9 Sodium 137 Potassium 3.8 Chloride 102 Carbon Dioxide 28 Anion Gap 7 BUN 11 Creatinine 0.61 Est Cr Clr Drug Dosing Not Reportable eGFR 102.92 BUN/Creatinine Ratio 18.0 Glucose 83 Uric Acid 4.0 Calcium 9.6 Magnesium 1.9 Total Bilirubin 0.4 AST 9 L ALT 7 Alkaline Phosphatase 85 Total Protein 8.5 H Albumin 3.9 Globulin 4.6 H Albumin/Globulin Ratio 0.8 L TSH 2.456 Urine Color Yellow Urine Appearance Clear Urine pH 6.0 Ur Specific [place] 1.022 Urine Protein Trace H Urine Glucose (UA) Negative Urine Ketones 1+ H Urine Blood Trace H Urine Nitrite Negative Urine Bilirubin Negative Urine Urobilinogen Negative Ur Leukocyte Esterase 1+ H Urine WBC (Auto) 6-10 H Urine RBC (Auto) 3-5 H U Hyaline Cast (Auto) 0-2 U Epithel Cells (Auto) 6-10 H Urine Bacteria (Auto) None Seen Lyme Disease Screen Negative 07/12/24 07/13/24 03:42 06:37 WBC 5.36 9.97 RBC 4.57 4.33 Hgb 11.8 L 11.3 L Hct 36.8 L 35.2 L MCV 80.5 81.3 MCH 25.8 26.1 MCHC 32.1 32.1 RDW Std Deviation 41.0 42.0 RDW Coeff of [place] 14.0 14.2 Plt Count 360 351 MPV 9.6 9.5 Immature Gran % (Auto) Neut % (Auto) Lymph % (Auto) [place] % (Auto) Eos % (Auto) Baso % (Auto) Neut # (Auto) Lymph # (Auto) [place] # (Auto) Eos # (Auto) Baso # (Auto) Immature Gran # (Auto) ESR PT INR APTT PTT Ratio Sodium 137 140 Potassium 4.5 3.8 Chloride 105 106 Carbon Dioxide 26 30 Anion Gap 6 4 BUN 16 21 Creatinine 0.53 L 0.58 L Est Cr Clr Drug Dosing 105.8 97.0 eGFR 106.47 104.18 BUN/Creatinine Ratio 30.2 H 36.2 H Glucose 150 H 103 H Uric Acid Calcium 9.4 9.2 Magnesium Total Bilirubin AST ALT Alkaline Phosphatase Total Protein Albumin Globulin Albumin/Globulin Ratio TSH Urine Color Urine Appearance Urine pH Ur Specific [place] Urine Protein Urine Glucose (UA) Urine Ketones Urine Blood Urine Nitrite Urine Bilirubin Urine Urobilinogen Ur Leukocyte Esterase Urine WBC (Auto) Urine RBC (Auto) U Hyaline Cast (Auto) U Epithel Cells (Auto) Urine Bacteria (Auto) Lyme Disease Screen Diagnostic Findings . Knee X-Ray 07/11/24 12:31 XR knee LT 3V CLINICAL HISTORY: Left knee pain. No trauma. COMPARISON: None FINDINGS: No acute fractures are identified. There is a moderate-sized joint effusion. Severe compartmental joint space narrowing is noted with [id number] appearance. There is associated bony remodeling with osteophytosis and subchondral sclerosis. IMPRESSION: 1. No fractures within the left knee. 2. Severe tricompartmental osteoarthritis of the left knee. 3. Moderate-sized joint effusion. ACT 112: Negative or not required by law. Electronically signed by: Tevin Gilman M.D. 07/11/2024 3:45 PM Venous Doppler Study 07/11/24 12:31 LEFT LOWER EXTREMITY VENOUS DOPPLER CLINICAL HISTORY: Left leg pain and edema. Evaluate for deep venous thrombus. COMPARISON STUDY: No previous studies for comparison. TECHNIQUE: Sonography of the deep venous system of the left lower extremity was performed. Compression and augmentation were evaluated. FINDINGS: The left common femoral, superficial femoral and popliteal veins were compressible. Augmentation was normal. Flow was shown within the deep calf vessels. IMPRESSION: No evidence of deep venous thrombus within the left lower extremity. ACT 112: Negative or not required by law. Electronically signed by: Tevin Gilman M.D. 07/11/2024 3:38 PM PG Care Time/CCT Total # of Minutes Spent Total Time Spent with Patient: Total time spent is greater than 50% in coordination of care (as documented) at patient's floor/unit and/or counseling patient: Coding Level of Care Code 50913 IN/OBS CONSULT LVL 3,45M Diagnoses Osteoarthritis of left knee M17.12 Effusion of left knee joint M25.462
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
[2024-07-13 15:24] VITALS: BP 151/90; PULSE 73; TEMP 97.9; O2SAT 98
--- NOTE | 2024-07-14 09:01 | Electrocardiogram Report ---
Test Reason : Blood Pressure : */* mmHG Vent. Rate : 66 BPM Atrial Rate : 66 BPM P-R Int : 138 ms QRS Dur : 82 ms QT Int : 402 ms P-R-T Axes : 52 46 47 degrees QTcB Int : 421 ms Normal sinus rhythm Normal ECG When compared with ECG of 04-Feb-2017 11:28, No significant change was found Confirmed by Ashu Ott ([id number]) on 07/14/2024 9:00:40 AM Referred By: Confirmed By: Ashu Ott
== END 2024-07-13 17:18 | disposition home or self-care (01) | DRG 547 ==
LOC: ED 11:29 → SUATTDRO 16:23 → 3N 16:23
DX: M06.9 Rheumatoid arthritis, unspecified; R26.9 Unspecified abnormalities of gait and mobility; M17.12 Unilateral primary osteoarthritis, left knee; R53.1 Weakness; W57.XXXA Bitten or stung by nonvenomous insect and other nonvenomous arthropods, initial encounter; R82.71 Bacteriuria; Z88.2 Allergy status to sulfonamides; M25.462 Effusion, left knee; S90.862A Insect bite (nonvenomous), left foot, initial encounter; Z88.8 Allergy status to other drugs, medicaments and biological substances

== ENCOUNTER 2024-09-02 10:42 | Observation (INO) ==
--- NOTE | 2024-08-18 12:00 | Anesthesiology Consultation ---
Date of Service August 18, 2024 Assessment & Plan (1) Encounter for pre-operative examination: Plan - awaiting result of repeat quantiferon TB test through [facility]. - indeterminate quantiferon TB test 07/18/24 felt to be false positive to higher prednisone dose per [facility] rheumatology records. Patient was to have repeat test per [facility] EMR, not yet completed. I spoke with patient the evening of 08/17/24 when this was noted and she denied night sweats, cough or unintentional weight loss. Radha with infection control advised patient could present as usual to [facility]/surgeon's office 08/18/24 for appointments and masking/precautions are not required. Case discussed in detail with Dr. Alegria who advised patient will need to have repeat quantiferon done prior to surgery. Patient aware and plans to have this done at [facility] where she has an active order from [facility] rheumatology provider. Surgeon's office was also made aware of above prior to patient presentation to their office and were comfortable with plan, also aware case is pending repeat quantiferon. Case discussed with Dr. Leavitt after PAT visit (Dr. Alegria was not available) he advised if repeat quantiferon test is negative, nothing further is needed from this standpoint or abnormal brain MRI. - rheumatology office note 07/18/24 [facility]: "...seen at [facility] 07/11/24 to 07/13/24 secondary to knee effusion and pain...given dose of steroids and discharged on prednisone 30 mg for 4 days then 20 mg until this visit. 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 - discharge summary 07/13/24 [facility]: "...Ambulatory dysfunction: Rheumatoid arthritis flare: Effusion of left knee joint...acute rheumatoid arthritis flare involving mainly the left knee. Extensive imaging completed in the ED, including head CT and brain MRI, both of which were grossly unremarkable. Did check LLE venous Doppler study given LLE edema which was negative for evidence of a DVT. Lumbar spine CT also obtained which did not reveal any major acute findings. Left knee XR did note a moderate-sized joint effusion and severe tricompartmental osteoarthritis. Orthopedic surgery subsequently consulted to evaluate the left knee effusion. Option of joint aspiration and possible steroid injection offered to patient however she elected to no pursue this due to the likelihood of minimal relief given the advanced state of her joint disease. It was determined that the patient will ultimately need a left knee joint replacement...Received 40mg IV Solu-Medrol in the ED. Transitioned to 30mg oral prednisone daily upon admission...Will be discharged on 30mg oral prednisone x 4 more days and then 20mg daily thereafter. Further tapering of prednisone course will be determined at her follow-up rheumatology appointment next week. Previously was on methotrexate however this was stopped a few years ago due to cost...Abnormal urinalysis: UA with trace blood, 1+ LE and 6-10 WBC. Patient completely asymptomatic in this regard...Empirically treated with IV Rocephin while inpatient pending urine culture results. Preliminary urine culture with no evidence of growth therefore ABX therapy has been discontinued. Suspect asymptomatic bacteriuria...Abnormal finding on MRI of brain: Several small white matter T2 hyperintense foci within the bilateral frontal lobes may represent mild small vessel disease or sequela of migraine headaches. These are of doubtful significance-- monitor blood pressure, lipid panel-- consider ASA 81mg po daily, Neuro consult-- Further work up, management, and ff up as outpatient ..." - Outpatient joint assessment: Patient is currently scheduled for inpatient pathway. If re-evaluated and patient/surgeon requests outpatient pathway, patient is/is not acceptable candidate for outpatient joint program from anesthesia standpoint pending surgeon's office assessment of pt motivation/support/completion of same day joint program preop requirements. Chart Review Chart Review: Pending: Refer to Additional Notes / Consult section and Patient seen in Pre Admission Testing Teaching & Discussion Pre-Anesthesia Teaching/Discussion Notes: Instructed NPO after midnight before surgery, except medications with 15 cc of water. Medication instructions provided according to the PAT guidelines. History Surgery Operation Date: 09/02/24 12:30 Proposed Procedures p Left Total Knee Arthroplasty - Ashu Still MD Height/Weight Height: 5 ft 1 in Weight: 79.5 kg Allergies Allergy/AdvReac Type Severity Reaction Status Date / Time metoclopramide Allergy Severe Involuntary Verified 08/18/24 11:49 movement, limb shaking/jerking oxycodone [From OxyContin] Allergy Severe angioedema Verified 08/18/24 12:17 Sulfa (Sulfonamide Allergy Mild LYMPH Verified 08/18/24 11:49 Antibiotics) NODES HARDEN AND SWELL Additional Notes: Surgeon's office made aware of patient reported oxycodone severe allergy. Medications Home Medications Medication Instructions Recorded Confirmed Last Taken acetaminophen 500 mg tablet 1,000 mg PO DAILY PRN Pain 08/18/24 08/18/24 Unknown naproxen sodium 220 mg tablet 220 mg PO BID PRN Pain 08/18/24 08/18/24 Unknown (Aleve) prednisone 20 mg tablet 5 mg PO QPM 08/18/24 08/18/24 Unknown Past Medical History Medical History (Updated 08/18/24 @ 12:36 by Tere Stewart PA-C) Ambulatory dysfunction Congenital single kidney DDD (degenerative disc disease), lumbar see 07/11/24 lumbar spine MRI Effusion of left knee joint False positive QuantiFERON-TB Gold test please see [facility] rheumatology note and scanned result. Patient has not yet had repeat test, felt to be false positive by rheumatology. [place] infection control felt patient could present as usual in health system. Family history of reaction to anesthesia reports some of her family have trouble waking up. History of anesthesia reaction tremors after right knee surgery, felt due to reglan Rheumatoid arthritis recent admit to [facility] with flare up, d/c home 07/13/24, follows with rheum- [facility] Right knee DJD Patient denies h/o stroke, seizures, heart attack, heart failure, DM, HTN, blood clots/DVTs or blood transfusions. Exercise / Class Metabolic Activity II 4-5 Yardwork/Stairs/Walk up hill (denies chest discomfort or shortness of breath with one flight of stairs) Past Surgical History Surgical History History of kidney surgery as a child, due to congenital single kidney, pt states she was ~ 3years old Hx of tubal ligation Hx of wisdom tooth extraction Status post right knee replacement (2017) [facility] Past Anesthesia History Other (see above in PMHx) History of PONV No Hx of PONV and No Hx of Motion Sickness Social History Smoking Status: Never smoker Do You Dip or Chew Tobacco: No Hx Alcohol Use: No Hx Substance Use: No Review of Systems Patient denies chest pain, shortness of breath, dyspnea on exertion, snoring, witnessed apneas, reflux, fever, chills, cough, wheezing, or palpitations. Physical Exam Vital Signs Vitals BP 118/70 P 73 TEMP 98.4 SP02 96% on RA RESP 18 Physical Patient resting comfortably in chair in no acute distress, alert and oriented, responding appropriately throughout visit Full cervical extension range of motion without pain TMD 3.5 finger breadths Mallampati Score 3 Dentition: several caps, denies chipped or loose teeth, crowns, implants or bridges Lungs: normal respiratory effort. Good air movement, clear throughout to auscultation, no adventitious breath sounds Cardiac: regular rate and rhythm, no murmurs noted Carotid arteries: negative bruit bilat Lab Results Anesthesia Preop Results Results Anesthesia Widget: WBC 10.88 K/ul (4.8-10.8) H 08/18/24 Hgb 13.5 g/dl (12.0-16.0) 08/18/24 Hct 41.5 % (37.0-47.0) 08/18/24 Plt 353 K/uL (130-400) 08/18/24 Na 139 mmol/L (136-145) 08/18/24 K 3.8 mmol/L (3.5-5.1) 08/18/24 Cl 104 mmol/L (98-107) 08/18/24 CO2 27 mmol/L (21-32) 08/18/24 BUN 26 mg/dl (6-23) H 08/18/24 Creat 0.68 mg/dl (0.6-1.2) 08/18/24 Glucose Level 90 mg/dl (70-99(Fasting)) 08/18/24 PT 10.5 Seconds (9.0-12.0) 08/18/24 PTT 25 Seconds (21-31) 08/18/24 INR 1.0 (0.9-1.1) 08/18/24 TSH 2.456 uIu/ml (0.300-4.500) 07/11/24 Urine Color Yellow 07/11/24 Urine Appearance Clear (Clear) 07/11/24 Urine pH 6.0 (4.5-7.5) 07/11/24 Urine Specific Newcomb 1.022 (1.000-1.030) 07/11/24 Urine Protein Trace (Negative) H 07/11/24 Urine Glucose (UA) Negative (Negative) 07/11/24 Urine Ketones 1+ (Negative) H 07/11/24 Urine Blood Trace (Negative) H 07/11/24 Urine Nitrite Negative (Negative) 07/11/24 Urine Bilirubin Negative (Negative) 07/11/24 Urine Urobilinogen Negative (Negative) 07/11/24 Urine Leukocyte Esterase 1+ (Negative) H 07/11/24 Urine WBC (Auto) 6-10 /hpf (0-5) H 07/11/24 Urine RBC (Auto) 3-5 /hpf (0-2) H 07/11/24 Urine Hyaline Casts (Auto) 0-2 /lpf (0-2) 07/11/24 Urine Epithelial Cells (Auto) 6-10 /hpf (0-2) H 07/11/24 Urine Bacteria (Auto) None Seen (None Seen) 07/11/24 Blood Type A Positive 08/18/24 Antibody Screen NEGATIVE 08/18/24 Testing Laboratory Results 07/18/24 quantiferon TB gold plus: indeterminate: results are indeterminate for response to ESAT-6 and/or CFP-10 test antigens TB1-NIL: 0.01 TB2-NIL: 0.01 [facility] rheumatology provider notation 07/21/24: "...will repeat in a couple weeks on TB test. Higher dose of prednisone may be interfering with testing..." Electrocardiogram Date: 07/11/24 NSR, rate 66 bpm Chest X-Ray Date: 08/18/24 No acute findings. Cervical Spine Date: 08/18/24 There is mild anterior translation of C4 on 5 and C5 on C6 and C6 on 7 with flexion which reduces with extension. There are mild diffuse degenerative changes. No fracture seen. Prevertebral soft tissues have normal thickness. IMPRESSION: Mild multilevel translational motion as described. Other Testing Brain MRI 07/11/24 Several small white matter T2 hyperintense foci within the bilateral frontal lobes may represent mild small vessel disease or sequela of migraine headaches. These are of doubtful significance. No acute intracranial findings. Head CT 07/11/24 No acute intracranial abnormality. Venous doppler LLE 07/11/24 No evidence of deep venous thrombus within the left lower extremity. Lumbar spine MRI 07/11/24 1. Mild degenerative disc disease and moderate facet arthrosis within the lumbar spine. 2. Patent central canal and neural foramen. 3. Grade I anterolisthesis of L5 on S1 with possible L5 pars defects.
--- NOTE | 2024-08-18 12:05 | PAT Medication Instructions ---
Medication Instructions Date of Service August 18, 2024 Home Medications acetaminophen 500 mg tablet 1,000 mg PO DAILY PRN naproxen sodium 220 mg tablet (Aleve) 220 mg PO BID PRN prednisone 20 mg tablet 5 mg PO QPM Continue as directed acetaminophen 500 mg tablet 1,000 mg PO DAILY PRN(if needed) ASK your surgeon for instructions naproxen sodium 220 mg tablet (Aleve) 220 mg PO BID PRN Take evening before surgery prednisone 20 mg tablet 5 mg PO QPM Other Notes NOTHING TO EAT OR DRINK AFTER MIDNIGHT. If you have any questions please call us at [phone] or [phone] or [phone] or [phone]
[~2024-09-02 10:42] MED LIST changes: -ACET-1256 PO; +BUPIVACAINE 0.5 % 5 MG/1 ML PF 10ML VIAL ONE; +EPINEPHrine INJ 1 MG/ML AMP ONE; -MELO7.5T5 PO; +MIDAZOLAM HCL 1 MG/ML 2ML VIAL ONE; +PROPOFOL IV EMULSION 10 MG/ML 20 ML VIAL IV ONE; +ROPIVACAINE 0.5% 5 MG/ML 30 ML VIAL ONE; +fentaNYL citrate PF 100 MCG/2 ML VIAL ONE
--- NOTE | 2024-09-02 10:42 | History & Physical Bridge Note ---
Date of Service September 02, 2024 History & Physical Bridge Note I have examined the patient, reviewed the History & Physical and in the interval since the performance of the History & Physical I have noted the following changes of clinical significance: no changes noted
[2024-09-02] MEDS: LR 500ML BOLUS, THEN 15ML/HR IV SCH (11:27)
[2024-09-02] MEDS: ACETAMINOPHEN 500 MG TAB PO SCH ×2 (11:33→20:50)
[2024-09-02] MEDS: CeleBREX 200 MG CAP PO SCH (11:33)
[2024-09-02] MEDS: FAMOTIDINE 20 MG TAB PO SCH (11:34)
[2024-09-02] MEDS: dexAMETHasone**PF** 10 MG/ML VIAL IV SCH (11:34)
[2024-09-02] MEDS ORDERED: ONDANSETRON INJ 2 MG/ML 2 ML VIAL IV PRN ×2 (11:51→16:44)
[2024-09-02] MEDS ORDERED: fentaNYL citrate PF 100 MCG/2 ML VIAL IV PRN (11:51)
[2024-09-02] MEDS ORDERED: ATROPINE SULFATE 0.1 MG/ML 10ML SYR IV PRN (11:51)
[2024-09-02] MEDS ORDERED: ePHEDrine sulfate 50 MG/ML AMP IV PRN (11:51)
[2024-09-02] MEDS: ceFAZolin 2000MG 2,000 MG/15 ML SYR IV SCH ×2 (13:15→20:51)
[2024-09-02] MEDS ORDERED: ONDANSETRON INJ 2 MG/ML 2 ML VIAL ONE (13:38)
[2024-09-02] MEDS ORDERED: KETAMINE HCL 10MG/ML SYR ONE (13:44)
[2024-09-02] MEDS ORDERED: fentaNYL citrate PF 100 MCG/2 ML VIAL ONE (13:49)
[2024-09-02] MEDS: VANCOMYCIN HCL 1000MG/20ML VIAL ONE (14:09)
[2024-09-02] MEDS: ORTHO JOINT ANESTHETIC ONE (14:10)
[2024-09-02] MEDS: ROPIV 0.5% 246mg, Ketorolac 30mg, EPINEPHrine 0.5mg in NSS INFIL SCH (14:11)
[2024-09-02] MEDS ORDERED: DEXAMETHASONE SOD INJ 4 MG/ML VIAL ONE (14:13)
[2024-09-02] MEDS: TRANEXAMIC ACID 1,000 MG **IV Intra-op IV SCH (14:14)
--- NOTE | 2024-09-02 15:09 | Operative Report ---
PG Post Operative Report Pre & Post Diagnosis Operation Date: 09/02/24 12:30 Pre-Op Diagnosis: Left Knee Osteoarthritis Post-Op Diagnosis: Left Knee Osteoarthritis I identified the patient and participated in the time-out.: Yes Procedure Operation Date: 09/02/24 12:30 Actual Procedures p Left Total Knee Arthroplasty(Left) - Ashu Still MD Surgeon Ashu Still MD Data Mining Analyst Jimi Su PA-C Estimated Blood Loss 50 Findings Consistent with Post-Op Diagnosis Operative findings revealed extensive erosive tricompartment DJD of the entire knee. All 3 compartments involved. Diffuse osteopenia. Extensive synovitis. Specimens Left knee sent for pathology. Anesthesia Type General Regional Complications none Disposition Accompanied Patient To Recovery: No Indications The patient is a 59-year-old female with longstanding rheumatoid disease who status post a right knee replacement in the past. Over the past several years she developed increased discomfort and disability and pain and stiffness in her left knee. She failed conservative measures. X-rays reveal advanced tricompartment DJD. She elected to a total knee arthroplasty. Description of Procedure Operative implants consists of: The 1 Biomet Vanguard size 55 left posterior stabilized femoral component. 2. Biomet size 63 tibial tray. 3. 10 mm PS plus polyethylene insert. 4. 28 x 8 all poly patella. The patient was taken the op room, identified, placed on the operative table in the supine position. All conductors were appropriately padded. IV antibiotics fibra anesthesia team. A spinal anesthetic and adductor canal block had provided in the holding area. Graves catheter was placed in sterile fashion for the left side joint was then placed. The left lower extremity was then prepped and draped in usual sterile fashion. The left leg was elevated and exsanguinated with use of an Esmarch and a tourniquet was placed at 300 mmHg. An anterior approach to the left knee was then performed through a longitudinal incision centered over the patella. Sharp dissection was got through subcutaneous tissue down the extensor mechanism. A medial parapatellar arthrotomy incision was made. Some subperiosteal dissection was carried out medially. At this point the patient was moving around quite a bit and still moving her legs. Therefore a general anesthetic was implemented. A complete synovectomy was then performed of the suprapatellar pouch and medial lateral gutters. The knee was then flexed. The patella subluxated laterally. The ACL and PCL were then released from distal femur and the tibia subluxated anteriorly. The lateral patellofemoral ligament was released. The external treatment LYMErix then placed on the interface the tibia and adjusted 14 mm medially. The proximal tibial cut was made removed about a millimeter or 2 of bone from the medial side. Tibia was then sized to a size 63. Attention drawn the femur. The distal femur was entered with a sharp drill. Intramedullary canal was suction. A left 5 degree valgus cutting guide was placed. The distal femoral cutting block was pinned in place. The femoral cut was made to take an additional 3 mm of bone off distal femur. The femur was then sized to a size 55. The AP cutting block was pinned parallel to the epicondylar axis which was 4 degrees of external rotation. Anterior cut, anterior chamfer, posterior cut, posterior chamfer cuts were made. The box cutting guide was placed and adjusted slightly laterally. The box cut was made. The knee was flexed. The remnants of the medial and lateral menisci were excised. The osteophytes taken off the posterior aspect the femur. A trial femoral component was placed. The tibial tray was pinned in Junie external rotation and the drill and stem punch were used to create defect in the proximal tibia for the tibial tray. The knee was then trialed and the 10 mm insert fit most appropriately. I did elect to use a PS plus insert as her soft tissues were fairly poor quality. Attention drawn the patella. The patella was cleaned of all soft tissue. Patella thickness measured 18 mm in thickness was cut down to 14. Was sized to a 28 patella. The lug holes were drilled for the 28 patella. Lateral osteophytes removed. Patella button was placed. Of note she did have a fairly large cyst in the patella which was curetted out. The knee was then taken through range of motion patella tracked nicely with no thumbs test. Attention drawn to placement permanent components. All trial components were removed. Bone plug was placed in the distal femur limit blood loss. Double batch Palacos G cement was mixed. I did add an additional gram of vancomycin due to her immunocompromise status. A Vanguard left 55 posterior stabilized femoral component followed by 63 tibial tray, a 10 mm PS plus insert and a 28 x 8 all poly patella then cemented in place. The knee was brought out into full extension till cement hardened. Final cement check was then performed. The pericapsular tissues were injected with total 100 cc of Ortho mix. The patient did receive 1 g tranexamic acid. The tourniquet was then let down for final tourniquet time 61 minutes. Hemostasis was assured with use of electrocautery. The wound was then irrigated. The extensor Metros then closed with a combination of #1 PDS suture #1 Vicryl suture in a [id number] fashion. The extensor Metros were checked found to be intact. Subcutaneous tissue then closed with 2 Dexon suture in a buried interrupted fashion skin was closed skin tyesha. Leg was then cleaned and dried and a sterile dressing with Xeroform, 4 fours, sterile cast padding, Melvin bandage was applied. The patient then transferred to the recovery room in stable condition. The patient tolerated procedure well and there were no complications. Jimi Su, my physician office clerk assistant, was present for the entire procedure. His assistance was essential and required for appropriate patient positioning, prepping and draping, surgical exposure, performing the technical details of the operation, placement the implants, closure of the wound, and placement of the sterile bandage. I attest to the content of the Intraoperative Record and any orders documented therein. Any exceptions are noted below.
--- NOTE | 2024-09-02 15:22 | XRay Report ---
XR knee LT 1 or 2V routine CLINICAL HISTORY: Surgical Post Op COMPARISON: 07/11/2024 FINDINGS: Left knee prosthesis shows no hardware complication. There is expected soft tissue gas. Sk in tyesha are present. IMPRESSION: Unremarkable postoperative exam. ACT 112: Negative or not required by law. Electronically signed by: Ricardo Alvarez M.D. 09/02/2024 3:20 PM
[2024-09-02] MEDS: diphenhydrAMINE 50 MG/ML VIAL IV STA (15:50)
[2024-09-02] MEDS: diphenhydrAMINE 50 MG/ML VIAL ONE (15:50)
[2024-09-02] MEDS: LORazepam 2 MG/1 ML VIAL IV STA (16:14)
[2024-09-02] MEDS: LORazepam 2 MG/1 ML VIAL ONE (16:14)
--- NOTE | 2024-09-02 16:15 | Anesthesiology Progress Note ---
Date of Service September 02, 2024 Anesthesia Post Procedure Vital Signs Vital Signs: Temp Pulse Pulse Resp BP BP Pulse Ox 09/02/24 15:55 98 H 22 123/82 96 09/02/24 15:45 96 H 22 167/100 H 97 09/02/24 15:35 97 H 22 157/102 H 98 09/02/24 15:25 91 H 20 144/88 H 96 09/02/24 15:15 93 H 12 152/87 H 99 09/02/24 15:06 36.4 C L 100 H 14 150/80 H 96 09/02/24 11:12 36.7 C 75 20 161/103 H 99 O2 Del Method O2 Flow Rate 09/02/24 15:55 Room Air 09/02/24 15:45 Room Air 09/02/24 15:35 Room Air 09/02/24 15:25 Room Air 09/02/24 15:15 Oxymask 9 09/02/24 15:06 Oxymask 9 09/02/24 11:12 Room Air Pain Intensity Bilateral Knee: Pain Intensity: 5 Transfer of Care Handoff Completed per policy Notes Mental Status: alert / awake / arousable and participated in evaluation Patient Amnestic to Procedure: Yes Nausea / Vomiting: adequately controlled Pain: adequately controlled Airway Patency, RR, SpO2: stable & adequate BP & HR: stable & adequate Hydration State: stable & adequate Anesthetic Complications: no major complications apparent Notes: Pt was awake, VSS in PACU when she developed profound shaking movements of her entire body. She is awake, responsive to verbal, denies pain. States she cannot control this total body tremor. Pt further states this happened after prior surgery and was attributed to reaction to metoclopramide. At that time, was treated with diphenhydramine and shaking subsided after several hours. Etiology is unknown at this time. I gave pt diphenhydramine and then lorazepam and she seems to be improving. Hospitalist consulted, awaiting reply.
[2024-09-02] MEDS ORDERED: HYDROmorphone INJ 0.5 MG/0.5 ML SYR IV PRN (16:44)
[2024-09-02] MEDS ORDERED: METOCLOPRAMIDE HCL INJ 5 MG/ML 2 ML VIAL IV PRN (16:44)
[2024-09-02] MEDS ORDERED: MAGNESIUM HYDROXIDE SUSP 30 ML UDC PO PRN (16:44)
[2024-09-02] MEDS ORDERED: NO NSAIDS SCH (16:44)
[2024-09-02] MEDS ORDERED: bisacodyL 10 MG SUPP PR PRN (16:44)
[2024-09-02] MEDS ORDERED: ALUMINUM/MAGNESIUM SUSP 30 ML UDC PO PRN (16:44)
[2024-09-02] MEDS ORDERED: NALOXONE HCL 0.4 MG/1 ML VIAL/CARP IV PRN (16:44)
[2024-09-02] MEDS ORDERED: HYDROmorphone HCL 2 MG TAB PO PRN (16:44)
[2024-09-02] MEDS: LR 60ML/HR IV SCH (16:46)
[2024-09-02] MEDS: ALLERGY Noted to ORDERED Medication SCH (17:04)
[2024-09-02] MEDS: SODIUM CHLORIDE 0.9% 1,000 ML IV SCH (17:09)
[2024-09-02] MEDS: ASCORBIC ACID 500 MG TAB PO SCH (17:25)
--- NOTE | 2024-09-02 20:12 | Consultation ---
Date of Consultation September 02, 2024 Assessment & Plan (1) Osteoarthritis of left knee: Patient with a past medical history of rheumatoid arthritis underwent left knee replacement for osteoarthritis on 09/02/2024. In postoperative period, patient had episode of whole body movement without any loss of consciousness. Reports similar history in the past. The episode is suspected secondary to metoclopramide Left knee osteoarthritis status post replacement on 09/02/2024 Possible acute dystonia secondary to metoclopramide and postop period -Monitor for recurrence of symptoms; plan to treat with IV Benadryl 50 mg if recurrence of symptoms; IV Ativan 0.5 mg if did not subside with Benadryl -Avoid further use of Reglan in the future -PT OT evaluation Rheumatoid arthritis-continue on prednisone; Rest per primary Time spent evaluating patient, direct bedside care, chart review, placing orders, interpretation of diagnostic studies, discussion with consultants, patient, and family members, as well as other required patient management activities is 60 minutes Please note the above document was generated using voice recognition software. It may contain grammatical, syntax or spelling errors. Any formal questions or concerns about the content, text or information contained within the body of this dictation should be directly addressed to the provider for clarification History of Present Illness Reason for Consultation: Postop management Attending Physician: Ashu Still MD History of Present Illness Past medical history of rheumatoid arthritis on 5mg of prednisone Patient underwent left total knee arthroplasty for left knee osteoarthritis. In postoperative PJD; patient had shaking movements of entire body; she was awake and respond to verbal command at that time and denied pain. She did not have bladder/bowel incontinence, no confusion after the event. The event was treated with diphenhydramine and Ativan which led to improvement. Patient was seen at bedside; reports that she had similar events in the past twice; both in postop.. She denies any history of seizure disorder. She did not have any incontinence during any of those episodes. Patient is alert oriented x 3, denies chest pain, shortness of breath or abdominal pain. Vital signs are stable Allergies Allergy/AdvReac Type Severity Reaction Status Date / Time metoclopramide Allergy Severe Involuntary Verified 09/02/24 11:07 movement, limb shaking/jerking oxycodone [From OxyContin] Allergy Severe angioedema Verified 09/02/24 11:07 Sulfa (Sulfonamide Allergy Mild LYMPH Verified 09/02/24 11:07 Antibiotics) NODES HARDEN AND SWELL Home Medications Medication Instructions Recorded Confirmed Type acetaminophen 500 mg tablet 1,000 mg PO DAILY PRN Pain 08/18/24 09/02/24 History naproxen sodium 220 mg tablet 220 mg PO BID PRN Pain 08/18/24 09/02/24 History (Aleve) prednisone 20 mg tablet 5 mg PO QPM 08/18/24 09/02/24 History acetaminophen 500 mg tablet 1,000 mg (2 x 500 mg) PO TID pain 08/31/24 09/02/24 Rx (Tylenol Extra Strength) 30 days #180 tabs aspirin 81 mg tablet,delayed 81 mg PO BID 45 days #90 tabs 08/31/24 09/02/24 Rx release (Moshe Low Dose Aspirin) cefadroxil 500 mg capsule 500 mg PO BID 7 days #14 caps 08/31/24 09/02/24 Rx hydromorphone 2 mg tablet 2 - 4 mg (1 - 2 x 2 mg) PO Q6 PRN 08/31/24 09/02/24 Rx pain #30 Tabs ondansetron 4 mg disintegrating 4 mg PO Q8 PRN nausea #20 tabs 08/31/24 09/02/24 Rx tablet sennosides 8.6 mg tablet (Senokot) 8.6 mg PO BID prevent constipation 08/31/24 09/02/24 Rx 14 days #28 tabs Patient History Medical History (Updated 09/02/24 @ 17:18 by Ashu Still MD) DDD (degenerative disc disease), lumbar see 07/11/24 lumbar spine MRI Family history of reaction to anesthesia reports some of her family have trouble waking up. History of anesthesia reaction tremors after right knee surgery, felt due to reglan Congenital single kidney Effusion of left knee joint Ambulatory dysfunction Rheumatoid arthritis recent admit to [facility] with flare up, d/c home 07/13/24, follows with rheum- carey crowe Right knee DJD Surgical History History of kidney surgery as a child, due to congenital single kidney, pt states she was ~ 3years old Hx of wisdom tooth extraction Hx of tubal ligation Status post right knee replacement (2016) [facility] Social History Smoking Status: Never smoker Second Hand Exposure: No; Do You Dip or Chew Tobacco: No; Tobacco Cessation Education Requested by Patient: No Hx Alcohol Use: No Hx Substance Use: No Preferred Language: Taiwanese Communication Ability: Effective Rn Child Required: No Beliefs That Will Affect Care: None Current Living Situation: Spouse Other Information That Helps Us Care for You: No Feels Safe at Home: Yes Safety Concerns: Feels Safe At This Time Assistive Devices: Cane and Walker Physical Exam Physical Exam: Constitutional: Alert oriented x 3; not in distress. Respiratory: Bilateral vesicular breath sound. Cardiovascular: RRR, no murmur, no edema Vessels: no JVD or carotid bruit Chest: normal inspection of chest Abdomen: normal bowel sounds, soft, nontender, no hepatosplenomegaly Musculoskeletal: dressing over left knee; Neurologic: PERRL, EOMI, accommodation nl, no face palsy, no dysarthria CN's II- XI intact bilaterally and moves all extremities Psychiatric: A+Ox3, euthymic affect Results & Data Vital Signs (Past 12 Hours) Vital Signs Temp Pulse Pulse Resp BP BP Pulse Ox 09/02/24 19:29 36.7 C 87 16 146/82 H 99 09/02/24 18:59 36.4 C L 83 16 137/79 98 09/02/24 17:44 36.8 C 108 H 18 131/82 96 09/02/24 17:11 36.8 C 86 17 138/86 95 09/02/24 17:00 09/02/24 16:40 36.8 C 89 17 133/80 96 09/02/24 16:25 36.7 C 90 15 143/84 H 96 09/02/24 16:15 97 H 20 143/94 H 95 09/02/24 16:05 92 H 20 165/90 H 94 09/02/24 15:55 98 H 22 123/82 96 09/02/24 15:45 96 H 22 167/100 H 97 09/02/24 15:35 97 H 22 157/102 H 98 09/02/24 15:25 91 H 20 144/88 H 96 09/02/24 15:15 93 H 12 152/87 H 99 09/02/24 15:06 36.4 C L 100 H 14 150/80 H 96 09/02/24 11:12 36.7 C 75 20 161/103 H 99 O2 Del Method O2 Flow Rate 09/02/24 19:29 Nasal Cannula 2 09/02/24 18:59 Nasal Cannula 2 09/02/24 17:44 Room Air 09/02/24 17:11 Room Air 09/02/24 17:00 Nasal Cannula 2 09/02/24 16:40 Nasal Cannula 2 09/02/24 16:25 Room Air 09/02/24 16:15 Room Air 09/02/24 16:05 Room Air 09/02/24 15:55 Room Air 09/02/24 15:45 Room Air 09/02/24 15:35 Room Air 09/02/24 15:25 Room Air 09/02/24 15:15 Oxymask 9 09/02/24 15:06 Oxymask 9 09/02/24 11:12 Room Air
[2024-09-02] MEDS: SENNA 8.6 MG TAB PO SCH (20:50)
[2024-09-02] MEDS: predniSONE 5 MG TAB PO SCH (20:50)
[2024-09-02] MEDS: ASPIRIN 81 MG ECTAB PO SCH (20:50)
[2024-09-02] MEDS: DOCUSATE SODIUM 100 MG CAP PO SCH (20:50)
[2024-09-02] MEDS ORDERED: SENNA 8.6 MG TAB PO SCH (21:00)
[2024-09-02] MEDS: TRANEXAMIC ACID / 0.7% NACL 1,000 MG/100 ML BAG IV SCH (21:01)
[2024-09-03 06:36] LABS: Hematocrit (blood only) 38.7 % (37.0-47.0); Hemoglobin 12.6 g/dl (12.0-16.0); Mean Corpuscular Hemoglobin 27.2 pg (25.0-34.0); Mean Corpuscular Hgb Conc 32.6 g/dL (32.0-36.0); Mean Corpuscular Volume 83.6 fL (80.0-100.0); Mean Platelet Volume 9.9 fL (9.4-12.4); Platelet Count 328 K/uL (130-400); RDW Coefficient of Variation 15.7 % (11.5-14.5); RDW Standard Deviation 48.2 fL (36.4-46.3); Red Blood Count 4.63 M/uL (4.20-5.40); White Blood Count 18.41 K/ul (4.8-10.8)
[2024-09-03 07:25] LABS: BUN Creatinine Ratio 25.3 (10-20); Calcium 8.9 mg/dl (8.6-10.3); Creatinine Clr Calc Pharmacy 76.9 ml/min; Potassium 4.4 mmol/L (3.5-5.1)
[2024-09-03 07:40] VITALS: RESP 16
[2024-09-03] MEDS: MULTIVITAMIN TAB PO SCH (07:44)
[2024-09-03] MEDS: dexAMETHasone 10 MG in SYRINGE 0 ML IV SCH (07:44)
[2024-09-03 07:45] VITALS: TEMP 98.2; O2SAT 98
--- NOTE | 2024-09-03 08:21 | Orthopedic Progress Note ---
Date of Service September 03, 2024 Assessment & Plan (1) Status post left knee replacement: Plan: 59-year-old female postop day 1 from a left knee replacement. She is doing well. Pain is controlled. She is neurologically intact. Plan: 1. DVT prophylaxis including thigh-high teds, SCDs, aspirin twice a day. 2. PT/OT. Weight-bear as taught. Left total knee protocol. 3. Pain control. Doing okay with current pain regimen. 4. Disposition. Plan is to discharge home with some home health if she does okay in therapy today. (2) Rheumatoid arthritis: Admission and Anticipated Discharge Date Admission Date: September 02, 2024 Subjective 59-year-old female with underlying rheumatoid disease postop day 1 from a left knee replacement. She is doing well. Had a good night. Pains been controlled. No chest pain or shortness of breath. Not feeling dizzy or lightheaded. Physical Exam Physical Exam: Physical nation was a pleasant middle-age female. She is sitting up in her bedside chair looks comfortable. Examination of the left leg reveals the dressing be clean dry and intact. She can dorsiflex and plantarflex her foot appropriately. She can do a straight leg raise. Respiratory: normal respiratory effort, lungs clear to auscultation Cardiovascular: RRR, no murmur, no edema Gastrointestinal (Abdomen): normal bowel sounds, soft, nontender, no hepatosplenomegaly Results & Data Vital Signs (Past 12 Hours) Vital Signs Temp Pulse Pulse Resp BP Pulse Ox O2 Del Method 09/03/24 07:43 36.8 C 64 16 130/70 98 Room Air 09/03/24 07:35 16 Room Air 09/03/24 03:00 36.4 C L 57 L 18 116/77 99 Nasal Cannula 09/02/24 23:14 36.3 C L 62 18 126/84 99 Nasal Cannula O2 Flow Rate 09/03/24 07:43 09/03/24 07:35 09/03/24 03:00 09/02/24 23:14 2 Diagnostic Findings Hemoglobin is 12.6. Hematocrit is 38.7 electrolytes are stable
[2024-09-03 10:28] VITALS: BP 137/79; PULSE 57
--- NOTE | 2024-09-03 11:45 | Hospitalist Progress Note ---
Date of Service September 03, 2024 Assessment & Plan (1) Osteoarthritis of left knee: Plan: Patient with a past medical history of rheumatoid arthritis underwent left knee replacement for osteoarthritis on 09/02/2024. In postoperative period, patient had episode of whole body movement without any loss of consciousness. Reports similar history in the past. The episode is suspected secondary to metoclopramide and /or anesthesia effect. Left knee osteoarthritis status post replacement on 09/02/2024 Possible acute dystonia secondary to metoclopramide and postop period -Monitor for recurrence of symptoms; patient received Benadryl and IV Ativan to help with symptom management. -Avoid further use of Reglan in the future, No further events. -PT OT evaluation Rheumatoid arthritis-continue on prednisone; Rest per primary Time spent evaluating patient, direct bedside care, chart review, placing orders, interpretation of diagnostic studies, discussion with consultants, patient, and family members, as well as other required patient management activities is 46 minutes Please note the above document was generated using voice recognition software. It may contain grammatical, syntax or spelling errors. Any formal questions or concerns about the content, text or information contained within the body of this dictation should be directly addressed to the provider for clarification Admission and Anticipated Discharge Date Admission Date: September 02, 2024 Subjective Patient was seen and examined at bedside. Patient was sitting up in chair, on room air, NAD, resting comfortably. Patient reports LLE pain under control. Denies fever, chest pain or shortness of breath. Physical Exam Physical Exam: Constitutional: Alert oriented x 3; not in distress. Respiratory: Bilateral vesicular breath sound. Cardiovascular: RRR, no murmur, no edema Vessels: no JVD or carotid bruit Chest: normal inspection of chest Abdomen: normal bowel sounds, soft, nontender, no hepatosplenomegaly Musculoskeletal: dressing over left knee; c/d/i. Neurologic: PERRL, EOMI, accommodation nl, no face palsy, no dysarthria CN's II- XI intact bilaterally and moves all extremities Psychiatric: A+Ox3, euthymic affect Results & Data Results & Data Vital Signs (Past 12 Hours) Vital Signs Temp Pulse Pulse Resp BP BP Pulse Ox 09/03/24 10:25 36.8 C 64 57 L 16 130/70 137/79 98 09/03/24 07:43 36.8 C 64 16 130/70 98 09/03/24 07:35 09/03/24 07:35 16 09/03/24 03:00 36.4 C L 57 L 18 116/77 99 O2 Del Method 09/03/24 10:25 09/03/24 07:43 Room Air 09/03/24 07:35 Room Air 09/03/24 07:35 Room Air 09/03/24 03:00 Nasal Cannula
== END 2024-09-03 11:21 | disposition home health service (06) ==
LOC: 3E 10:42 → ASU 10:42